=== PATIENT | female | born 1935 | race Caucasian/White ===

== ENCOUNTER 2018-04-27 19:45 | Observation (INO) | payer MEDICARE, BC ==
--- NOTE | 2018-04-27 20:39 | RAD ---
EXAM DESCRIPTION: Chest,1 View CLINICAL HISTORY: syncope COMPARISON: None. FINDINGS: Electronic cardiac device and leads are present. Cardiac silhouette is mildly enlarged. There is no focal parenchymal or pleural disease. Visualized osseous structures are within normal limits. IMPRESSION: No evidence of acute cardiopulmonary disease. Electronically signed by: Aj Zavala 04/27/2018 8:37 PM CDT
--- NOTE | 2018-04-27 20:40 | CT ---
EXAM DESCRIPTION: Head CLINICAL HISTORY: syncope COMPARISON: None Available TECHNIQUE: Contiguous axial CT images of the head were obtained. Coronal and sagittal reconstructions were created from the axial data. This exam was performed according to our departmental dose-optimization program, which includes automated exposure control, adjustment of the mA and/or kV according to patient size and/or use of iterative reconstruction technique. FINDINGS: There is no evidence of acute mass, mass effect, midline shift or hemorrhage. The ventricles and extra-axial CSF spaces are unremarkable. The brain parenchyma appears normal for the patient's age. No acute abnormalities of the bones is seen. IMPRESSION: No acute intracranial abnormality. Electronically signed by: Aj Zavala 04/27/2018 8:39 PM CDT
--- NOTE | 2018-04-27 21:10 | ED.PDOC ---
History of Present Illness - General Chief Complaint: Syncope/Near Syncope Stated Complaint: Passed Out Time Seen by Provider: 04/27/18 19:57 Source: patient Exam Limitations: no limitations - History of Present Illness Initial Comments: the patient's an 83-year-old female presenting to the emergency room after having passed out at the checkout line in [facility]. She reports that she had been doing okay getting around [facility] that she started getting dizzy and that she didn't pass out. She is not hurting anywhere. She is uncertain if she has passed out before. She does apparently have some dementia. She is not having any chest pain. She reports very mild shortness of breath. No palpitations. No dizziness currently. No urinary symptoms. No nausea or vomiting. She is moving all 4 extremities well. Timing/Duration: unsure Severity: mild Improving Factors: nothing Worsening Factors: nothing Allergies/Adverse Reactions: Allergies Tramadol Allergy (Severe, Verified 04/27/18 20:06) Hives Review of Systems - Review of Systems Constitutional: States: malaise EENTM: States: no symptoms reported Respiratory: States: short of breath - very mild Cardiology: States: no symptoms reported Gastrointestinal/Abdominal: States: no symptoms reported Genitourinary: States: no symptoms reported Musculoskeletal: States: no symptoms reported Skin: States: no symptoms reported Neurological: States: other - syncope Endocrine: States: no symptoms reported All other Systems: No Change from Baseline Physical Exam - Physical Exam General Appearance: Alert, Comfortable, No apparent distress Eye Exam: bilateral normal Ears, Nose, Throat: hearing grossly normal, normal ENT inspection, normal pharynx Neck: full range of motion, supple, normal inspection Respiratory: lungs clear, normal breath sounds, no respiratory distress, no accessory muscle use Cardiovascular/Chest: normal peripheral pulses, no edema, other - regular rate Peripheral Pulses: radial,right: 2+, radial,left: 2+, dorsalis pedis,right: 2+, dorsalis pedis,left: 2+ Gastrointestinal/Abdominal: non tender, soft Rectal Exam: deferred Back Exam: normal inspection, no CVA tenderness, no vertebral tenderness Extremity: non-tender, normal inspection, no pedal edema, normal capillary refill Neurologic: marketing communications leader II-XII nml as tested, alert, normal mood/affect, oriented x 3, other - again the patient does have some dementia Skin Exam: normal color Progress - Progress Progress: 04/27/18 21:46 the patient's an 83-year-old female with past at [facility] today. Source of the syncope is still uncertain. No significant arrhythmia has been noted on telemetry monitoring so far. Head CT and chest x-ray are within normal limits. Laboratory work shows mild hypokalemia for which she is receiving a dose of potassium. She also does have a moderately elevated TSH which may yet need to be addressed. She does have multiple home medications which can make her more prone to syncopal episodes. Additionally family is reporting that she was started on a new antidepressant this week which may also be contributing. She does need some assistance with getting out that she is still very mildly dizzy. No focal neurological deficits. She is in no distress. She is alert and oriented. The patient will be admitted for further monitoring overnight. Outpatient carotid Dopplers may yet prove warranted. - Results/Orders Results/Orders: tilt vitals are negative. No significant drop in the blood pressure. She has a paced rate. UA [URINALYSIS] Stat still pending 04/27/18 20:15 EKG STAT the patient appears to have a atrially and ventricularly paced rhythm. Given that she does have T-wave inversions in aVL. Again it is a paced rhythm. Laboratory Results - last 24 hr 04/27/18 04/27/18 04/27/18 20:04 20:04 20:04 WBC RBC Hgb Hct MCV MCH MCHC RDW Plt Count MPV Absolute Neuts (auto) Absolute Lymphs (auto) Absolute Monos (auto) Absolute Eos (auto) Absolute Basos (auto) Neutrophils % Lymphocytes % Monocytes % Eosinophils % Basophils % PT 11.4 INR 0.980 PTT (SP) 25.2 D-Dimer, Quantitative 362 H* Sodium 138 Potassium 3.3 L Chloride 104 Carbon Dioxide 26 Anion Gap 11.3 L BUN 17 Creatinine 1.04 BUN/Creatinine Ratio 16.3 Random Glucose 94 Serum Osmolality 277.0 Lactic Acid 1.1 Calcium 8.3 L Magnesium 1.8 Total Bilirubin 0.4 AST 20 ALT 11 Alkaline Phosphatase 69 Creatine Kinase 86 CK-MB (CK-2) 1.3 CK-MB (CK-2) % Not Reportable Troponin I 0.02 B-Natriuretic Peptide 158.0 H Serum Total Protein 6.4 Albumin 3.7 Globulin 2.7 Albumin/Globulin Ratio 1.4 TSH 9.92 H 04/27/18 20:05 WBC 6.8 RBC 3.80 L Hgb 11.7 L Hct 34.3 L MCV 90.3 MCH 30.7 MCHC 34.1 RDW 13.6 Plt Count 212 MPV 8.2 Absolute Neuts (auto) 4.10 Absolute Lymphs (auto) 1.60 Absolute Monos (auto) 0.90 H Absolute Eos (auto) 0.10 Absolute Basos (auto) 0.10 Neutrophils % 60.5 Lymphocytes % 23.9 Monocytes % 12.8 H Eosinophils % 1.8 Basophils % 1.0 PT INR PTT (SP) D-Dimer, Quantitative Sodium Potassium Chloride Carbon Dioxide Anion Gap BUN Creatinine BUN/Creatinine Ratio Random Glucose Serum Osmolality Lactic Acid Calcium Magnesium Total Bilirubin AST ALT Alkaline Phosphatase Creatine Kinase CK-MB (CK-2) CK-MB (CK-2) % Troponin I B-Natriuretic Peptide Serum Total Protein Albumin Globulin Albumin/Globulin Ratio TSH chest x-ray shows no acute pathology. Head CT shows no acute pathology.see reports for details. Departure - Departure Clinical Impression: Hypokalemia Syncope Qualifiers: Syncope type: unspecified Qualified Code(s): R55 - Syncope and collapse Hypothyroidism Qualifiers: Hypothyroidism type: unspecified Qualified Code(s): E03.9 - Hypothyroidism, unspecified Disposition: Admit Patient Condition: Fair Decision To Admit - Decistion To Admit Decision to Admit Reason: Medical Nature Decision to Admit Date: 04/27/18 Decision to Admit Time: 21:49
[2018-04-27] MEDS ORDERED: POTASSIUM CHLORIDE ELIXIR 20 MEQ/15 ML UD PO ONE (21:37)
--- NOTE | 2018-04-27 22:55 | HP ---
SUPERVISING PHYSICIAN: Pete Dai M.D. CHIEF COMPLAINT: Syncopal episode. HISTORY OF PRESENT ILLNESS: Ms. Colorado is an 83 year-old female patient that resides in assisted living at [facility]. She presented to the Emergency Department via EMS as she passed out st [facility]. She reported that she was having a good day and getting around at [facility] and then started getting dizzy, and sat down in a chair and apparently passed out. She denied any chest pains on admission, any shortness of breath or palpitations. She does have some dizziness periodically but was reporting no dizziness at time of admission. Laboratory studies showed she had a normal white count. Chemistries showed she was just mildly hypokalemic with a potassium of 3.3, otherwise chemistries were unremarkable. TSH was elevated at 9.92. Urinalysis showed a small amount of leukocyte esterase on dipstick, but microscopic revealed 1 to 3 RBCs with 20 to 30 WBCs, 1 to 3 epithelials with 4+ bacteria. She had a CT of the head without contrast per with radiology interpretation no acute intracranial abnormalities were noted. The patient does have a history of dementia and notes that she frequently has some fainting episodes when she is in a hot, congested environment such as [facility]. She does take multiple medications that could possibly be prone to resulting in syncopal episodes as well as just recently started a new antidepressant. No focal deficits were noted in the E. R., however given the patient's syncopal episode, advanced age, multiple co-morbidities and hypokalemic state the patient was placed in Observation status for further monitoring and evaluation. The patient was in stable condition at time of admission. PAST MEDICAL HISTORY: 1. Congestive heart failure with a systolic dysfunction with an echocardiogram showing a 20% ejection fraction on 02/26/17. 2. Hyperlipidemia. 3. Hypertension. 4. Severe mitral valve regurgitation. 5. History of left bundle branch block. 6. Urinary incontinence with multiple urinary infections currently on suppressive antibiotic therapy. 7. Osteoarthritis. 8. History of multinodular goiter. 9. Peripheral sensory neuropathy. 10. Memory loss. 11. Essential tremor. 12. Seasonal allergies. PAST SURGICAL HISTORY: 1. Hysterectomy in 1974. 2. Heel spur in 1998. 3. Bilateral cataracts in 2006. 4. Heart cath in 1996, 2002 and again in 2011. 5. Thyroid biopsy in 2007. 6. Hand fracture repair in 2012. 7. InterStim bladder implant in June 2013. 8. Defibrillator implantation on 03/2017. HOME MEDICATIONS: 1. Zetia 10 mg at bedtime. 2. Tylenol 650 mg every 6 hours p.r.n. 3. Red yeast rice 1200 mg daily. 4. Mysoline 100 mg at bedtime. 5. Pazeo 1 drop both eyes. 6. Prevagen extra strength 20 mg at bedtime. 7. Namenda 5 mg b.i.d. 8. Myrbetriq 25 mg daily. 9. Zestril 2.5 mg daily. 10. Lasix 40 mg daily. 11. Coreg 6.25 mg b.i.d. 12. Xanax 0.25 mg every 12 hours as needed. ALLERGIES: TRAMADOL. FAMILY HISTORY: at age 76 due to myocardial infarction. Mother at age 95 due to congestive heart failure complications and arthritis. She has 1 daughter that has breast cancer and Sjogren's. SOCIAL HISTORY: The patient is retired. Currently living at [facility]. She has never smoked and has never drank alcohol, and does not use illicit drugs. REVIEW OF SYSTEMS: CONSTITUTIONAL: Notes some general malaise. Denies any fever or chills. HEENT: No headaches, ear aches, sore throat or vision changes. RESPIRATORY: Does have some mild shortness of breath at times. No coughing or wheezing. CARDIOVASCULAR: No chest pains or palpitations, but as noted in history of present illness syncopal episode. GASTROINTESTINAL: No nausea, vomiting, diarrhea, constipation or abdominal pains. GENITOURINARY: Has chronic urinary tract infections but denies any current urinary symptoms. NEUROLOGIC: As noted in history of present illness, currently syncopal episode. She does note that she has some dizziness periodically, but it is not predictable and typically goes away shortly after sitting still and typically with change in position. She denies any ataxia, seizures or other neurological deficits. She does have a history of dementia with poor memory. PHYSICAL EXAMINATION: VITAL SIGNS: Temperature 97.6, pulse 60, blood pressure 102/61, respirations 16 , satting 99% on room air. Admission weight was 69.6 kg. GENERAL: On admission to the Medical/Surgical floor, the patient appeared to be comfortable in no acute distress. She was alert and pleasantly confused as to current date and locations. HEENT: Tympanic membranes are clear bilaterally. Oropharynx was pink and moist without any lesions. There were no lesions noted. NECK: Full range of motion. Supple, non-tender and no jugular venous distention. CHEST: Lungs were clear to auscultation bilaterally without any rhonchi, wheezing or rales. CARDIOVASCULAR: Regular rate and rhythm with no discernible murmurs, gallops, or rubs. ABDOMEN: Non-tender, soft with palpation with positive bowel sounds. BACK: Atraumatic with no CVA tenderness. No paravertebral tenderness. EXTREMITIES: Atraumatic. Full range of motion, moving all extremities ad dasha with no edema, cyanosis or clubbing. NEUROLOGIC: Cranial nerves II-XII are grossly intact. Facial features were symmetrical. Extraocular movements were within normal limits. There was no notable nystagmus. The patient was alert to herself and locations, but she could not remember where she used to live and could not recall the year, but she does have a history of dementia. There was no obvious focal neurological deficits. LABORATORY: CBC showed a white count of 6,800, hemoglobin 11.7, hematocrit 34.3 , platelet count 212,000. Differential showed to be without a left shift. Coagulation studies showed a normal PT and PTT, slightly elevated D-dimer at 362. Chemistry showed a mildly low potassium at 3.3, otherwise other electrolytes were normal. BUN 17, creatinine 1.04, lactic acid 1.1, calcium 8.3. Liver functions all were within normal limits. Magnesium normal at 1.0. Troponin at 0.02. BNP was only slightly elevated at 158 and TSH was elevated at 9.92. Urinalysis showed cloudy urine with small amount of leukocyte esterase , RBCs 1 to 3, epithelials were 1 to 3 and WBCs were 20 to 30 with 4+ bacteria. MICROBIOLOGY: Urine culture is pending. RADIOLOGY: She had a CT of the head without contrast and per radiology interpretation no acute intracranial abnormalities. She had a chest x-ray in the E. R., single view chest, per radiology interpretation showed no evidence of acute cardiopulmonary disease. ASSESSMENT: 1. Syncopal episode, uncertain etiology, possibly related to heat exposure and exhaustion. 2. Electrolyte imbalance with hypokalemia with the patient currently on Lasix. 3. Elevated TSH with no mention of a history of hypothyroidism and not currently on supplementation possibly contributing to some of her symptoms of heat intolerance and fatigue easily. Again, needing further workup in the outpatient setting. 4. History of hypertension with an echocardiogram in 02/2017 showing a systolic dysfunction with an ejection fraction of 20%. 5. Congestive heart failure with last echocardiogram in showing a systolic dysfunction with an ejection fraction of 20% with no evidence of exacerbation. 6. Hyperlipidemia. 7. Mitral regurgitation, severe. 8. History of urinary incontinence with frequent urinary tract infections. 9. Memory loss. 10. Essentially tremor. 11. Seasonal allergies. 12. Urinary tract infection with cultures pending with the patient having a history of frequent urinary tract infections having previously been placed on suppressive antibiotic therapy. PLAN: We are going to place the patient in Observation for close telemetry monitoring and further evaluation. Will plan to replace her potassium slowly with IV fluids, reevaluate chemistries in the morning. In regards to the elevated TSH and questionable hypothyroidism, will defer definitive treatment to Dr. Cohn and call him on Sunday for choice of treatment medication and further testing. Anticipate length of stay to be 1 to 2 days. Hopefully be able to discharge later tomorrow, but need to ensure the patient is no longer having any dizziness spells or any further syncopal episodes prior to discharge as she does live at assisted living but essentially lives by herself without any [id number] help. Will resume her home medications once they have been updated and verified as appropriate. She will be on DVT prophylaxis as appropriate. Will start her on Rocephin, currently awaiting culture results for treatment of the urinary tract infection and adjust antibiotics according to results. If she is still here Sunday, will plan to go ahead and get an evaluation with Physical Therapy on Sunday to ensure that she is safe to discharge. Until then, will continue to monitor and treat appropriately. #[id number] [facility]
[2018-04-27] MEDS ORDERED: ACETAMINOPHEN 325 MG TAB PO PRN (23:36)
--- NOTE | 2018-04-27 23:42 | PCM.CORE ---
Physician DVT/VTE - Nurse DVT Assessment & Total Each Risk Factor Represents 3 Points: Age over 75 years Each Risk Factor is 1 Point: Obesity (BMI >25) DVT Assessment Score: 4 - 3-4 High Risk Treatments: Early Ambulation *, Sequential Compression Device Pharmacological: Enoxaparin 40 mg SQ Daily
[2018-04-27] MEDS ORDERED: IV SET AND CAP CHANGE INJ INJ SCH (23:45)
[2018-04-28] MEDS: KCL 20 MEQ/NS 1,000 ML IVS PRN ×2 (00:43→14:12)
[2018-04-28] MEDS: SODIUM CHLORIDE 0.9% (FLUSH) 10 ML SYG IV PRN (00:43)
[2018-04-28] MEDS ORDERED: cefTRIAXone SODIUM 1 GM VIAL ONE ×2 (01:49→14:03)
[2018-04-28] MEDS ORDERED: SODIUM CHL 0.9% 50ML MIN-BAG+ 50 ML IVPB ONE ×2 (01:50→14:03)
[2018-04-28] MEDS: cefTRIAXone SODIUM 1 GM in SODIUM CHL 0.9% 50ML MIN-BAG+ 50 ML IVPB SCH ×2 (01:54→14:12)
[2018-04-28] MEDS: ALPRAZolam 0.25 MG TAB PO PRN ×2 (01:58→20:35)
[2018-04-28] MEDS: CARVEDILOL 3.125 MG TAB PO SCH ×2 (09:39→20:35)
[2018-04-28] MEDS: ENOXAPARIN SODIUM 40 MG/0.4 ML SYG SUBCU SCH (09:39)
[2018-04-28] MEDS: FUROSEMIDE 40 MG TAB PO SCH (09:39)
[2018-04-28] MEDS: LISINOPRIL 5 MG TAB PO SCH (09:40)
[2018-04-28] MEDS: MEMANTINE 10 MG TAB PO SCH ×2 (09:44→20:47)
[2018-04-28] MEDS: OLOPATADINE HCL BOTH_EYES SCH (11:18)
[2018-04-28] MEDS: NON-FORMULARY MEDICATION 1 EA MIS (Mirabegron [Myrbetriq] 25 MG) PO SCH (11:19)
[2018-04-28] MEDS ORDERED: EZETIMIBE 10 MG TAB PO SCH (21:00)
[2018-04-28] MEDS ORDERED: APOAEQUORIN PO SCH (21:00)
[2018-04-28] MEDS ORDERED: PRIMIDONE 50 MG TAB PO SCH (21:00)
[2018-04-29] MEDS ORDERED: SODIUM CHL 0.9% 50ML MIN-BAG+ 50 ML IVPB ONE (00:58)
[2018-04-29] MEDS ORDERED: cefTRIAXone SODIUM 1 GM VIAL ONE (00:58)
[2018-04-29] MEDS: SODIUM CHLORIDE 0.9% (FLUSH) 10 ML SYG IV PRN (01:56)
[2018-04-29] MEDS: cefTRIAXone SODIUM 1 GM in SODIUM CHL 0.9% 50ML MIN-BAG+ 50 ML IVPB SCH (01:56)
--- NOTE | 2018-04-29 08:24 | PN ---
SUPERVISING PHYSICIAN: Pete Dai MD DATE: 04/28/18 SUBJECTIVE: The patient this morning is much more oriented and has a better recall of events of previous days. She actually got to a chair but still continues to have dizziness upon standing although blood pressure does not show any significant changes in regard to tilt vital signs. OBJECTIVE: VITAL SIGNS: Afebrile. Temperature 97.6. Pulse 60. Blood pressure 102/60. Respirations 16. Saturation 99% on room air. I&Os show negative balance of 1400 with 450 in, 1850 out, weight 69.6 kg. CHEST: Lungs clear to auscultation. HEART: Regular rate and rhythm. ABDOMEN: Soft, nontender. Positive bowel sounds. EXTREMITIES: No cyanosis, clubbing or edema. NEUROLOGIC: Alert and oriented times three. Cranial nerves remain grossly intact. Extraocular movements are intact with no notable nystagmus. There is no obvious ataxia. She is ambulatory, but does have some dizziness upon standing. LABORATORY: Chemistries now show normal electrolytes with potassium 4.0, BUN 14 , creatinine 0.87, calcium 8.5. MICROBIOLOGY: Urine culture is pending. RADIOLOGY: No additional radiographic studies done this morning. ASSESSMENT: 1. Syncopal episode, uncertain etiology, possibly related to heat exposure and exhaustion. 2. Electrolyte imbalance with hypokalemia with the patient currently on Lasix , showing improvement with IV fluids. 3. Elevated TSH with no mention of a history of hypothyroidism and not currently on supplementation possibly contributing to some of her symptoms of heat intolerance and fatigue easily. Again, needing further workup in the outpatient setting. 4. History of hypertension with an echocardiogram in 02/2017 showing a systolic dysfunction with an ejection fraction of 20%. 5. Congestive heart failure with last echocardiogram in showing a systolic dysfunction with an ejection fraction of 20% with no evidence of exacerbation. Certainly with such a decreased ejection fraction, the patient would be prone to syncopal episodes with minimal changes in blood pressure. 6. Hyperlipidemia. 7. Mitral regurgitation, severe. 8. History of urinary incontinence with frequent urinary tract infections. 9. Memory loss. 10. Essentially tremor. 11. Seasonal allergies. 12. Urinary tract infection with cultures pending with the patient having a history of frequent urinary tract infections having previously been placed on suppressive antibiotic therapy. The patient is on Rocephin. PLAN: I was hoping to be able to discharge the patient today, but this morning when we got her up, she was having a significant amount of dizziness. There is no pattern to this dizziness and the patient is not actually showing any syncope , but continues to be unstable on her feet. An additional 24 hours of close observation with continued fluid maintenance and physical therapy evaluation in the morning would be warranted prior to discharge. WE will need to talk to Dr. Cohn in regards to starting treatment for the elevated TSH. We will continue to monitor the patient closely and anticipate discharge tomorrow after physical therapy evaluation. Until then, we will continue to monitor the patient closely and treat appropriately. #[id number] [facility]
[2018-04-29] MEDS: CARVEDILOL 3.125 MG TAB PO SCH (08:30)
[2018-04-29] MEDS: FUROSEMIDE 40 MG TAB PO SCH (08:30)
[2018-04-29] MEDS: LISINOPRIL 5 MG TAB PO SCH (08:30)
[2018-04-29] MEDS: MEMANTINE 10 MG TAB PO SCH (08:30)
[2018-04-29] MEDS: ENOXAPARIN SODIUM 40 MG/0.4 ML SYG SUBCU SCH (08:30)
[2018-04-29] MEDS: NON-FORMULARY MEDICATION 1 EA MIS (Mirabegron [Myrbetriq] 25 MG) PO SCH (08:31)
[2018-04-29] MEDS: OLOPATADINE HCL BOTH_EYES SCH (08:31)
[2018-04-29] MEDS ORDERED: SODIUM CHLORIDE 0.9% (FLUSH) 10 ML SYG IV SCH (09:00)
[2018-04-29 10:42] VITALS: BP 116/61; TEMP 97.2; O2SAT 97
--- NOTE | 2018-04-29 14:17 | DS ---
SUPERVISING PHYSICIAN: Hussain Zamora MD ADMISSION DIAGNOSIS: 1. Syncope, likely relate to heat exposure and heat exhaustion. 2. Electrolyte imbalance, hypokalemia. 3. Elevated TSH. 4. Hypertension. 5. Cardiomyopathy with ejection fraction 20%. 6. Severe mitral regurgitation. 7. Dementia. 8. Urinary tract infection. DISCHARGE DIAGNOSIS: 1. Syncope, likely relate to heat exposure and heat exhaustion. 2. Electrolyte imbalance, hypokalemia. 3. Elevated TSH. 4. Hypertension. 5. Cardiomyopathy with ejection fraction 20%. 6. Severe mitral regurgitation. 7. Dementia. 8. Urinary tract infection. HOSPITAL COURSE: This is an 83-year-old female who presented to the Emergency Room via EMS because she had a syncopal episode at [facility]. She states she was in her usual state of health, but that in [facility], she started to get dizzy. She sat down in a chair and apparently had a syncopal episode. She denies any other symptoms of distress, pain, shortness of breath or palpitations. She states she periodically has some dizziness, but this time she did lose consciousness. When she was seen in the Emergency Room, she had labs done which showed a mild hypokalemia at 3.3, normal white count. TSH was elevated at 9.92. She also had a urinary tract infection. CT scan of the brain showed no acute abnormalities. She does have a history of dementia as well. When she was admitted, she was placed on antibiotics for urinary tract infection. However, cultures have not been resulted as of yet. She had no further syncopal episodes. She stated she was weak, but physical therapy evaluated her the day of discharge and she ambulated in the [place] without any problem and was stable to go back to her assisted living facility. ACTIVITY: As tolerated. FOLLOWUP: Followup appointment with Dr. Cohn in one to two weeks. DIET: As per usual diet. DISCHARGE MEDICATIONS: 1. Ceftin 500 mg b.i.d. for 7 days. 2. Levothyroxine 50 mcg daily. She will have followup appointment with Dr. Cohn and he can adjust this medication accordingly. #[id number] [facility]
== END 2018-04-29 12:58 ==
LOC: ER 19:45 → MS 22:53
PROVIDERS: ADMIT Nurse Practitioner Family; ATTEND Nurse Practitioner
DX: R55 Syncope and collapse (principal); E87.6 Hypokalemia; E87.8 Other disorders of electrolyte and fluid balance, not elsewhere classified; R94.6 Abnormal results of thyroid function studies; I11.0 Hypertensive heart disease with heart failure; I42.9 Cardiomyopathy, unspecified; I34.0 Nonrheumatic mitral (valve) insufficiency; F03.90 Unspecified dementia, unspecified severity, without behavioral disturbance, psychotic disturbance, mood disturbance, and anxiety; N39.0 Urinary tract infection, site not specified; I50.20 Unspecified systolic (congestive) heart failure; E78.5 Hyperlipidemia, unspecified; G62.9 Polyneuropathy, unspecified; Z79.899 Other long term (current) drug therapy; Z88.6 Allergy status to analgesic agent
CPT/HCPCS: 96365; 96366; 96367; 96372 ×2; 96376 ×2; J0696 ×3; J1650 ×2; J3480 ×2; J7050 ×3; 85379; 80048; 82553; 80053; 87086; 36415 ×2; 81001; 85025; 82550; 83735; 85730; 85610; 84443; 84484; 83880; 83605; 71045; 70450; 94760 ×4; 97116; G8978; G8979; G8980; 97162; 99285; 93005

== ENCOUNTER → 2018-05-02 | Outpatient (CLI) | payer MEDICARE, BC | LOC: GMAL 17:00 | PROVIDERS: ATTEND Family Medicine | DX: E05.90 Thyrotoxicosis, unspecified without thyrotoxic crisis or storm (principal) ==

== ENCOUNTER → 2018-05-15 | Outpatient (CLI) | payer MEDICARE, BC | LOC: YCHH 10:06 | PROVIDERS: ATTEND Family Medicine | DX: I50.9 Heart failure, unspecified (principal) ==

== ENCOUNTER → 2018-05-28 | Outpatient (CLI) | payer MEDICARE, BC | LOC: YCHH 10:22 | PROVIDERS: ATTEND Family Medicine | DX: I50.9 Heart failure, unspecified (principal) ==

== ENCOUNTER → 2018-06-04 | Outpatient (CLI) | payer MEDICARE, BC | LOC: GMAL 10:44 | PROVIDERS: ATTEND Family Medicine | DX: D51.3 Other dietary vitamin B12 deficiency anemia (principal); E05.90 Thyrotoxicosis, unspecified without thyrotoxic crisis or storm; E55.9 Vitamin D deficiency, unspecified ==

== ENCOUNTER 2018-10-09 16:34 | Observation (INO) | payer MEDICARE ==
--- NOTE | 2018-10-09 16:38 | HP ---
SUPERVISING PHYSICIAN: Pete Dai MD CHIEF COMPLAINT: Dehydration, positive tilt vital signs. HISTORY OF PRESENT ILLNESS: Ms. Colorado is a 83-year-old, female patient that resides at [facility]. On 09/25/18, she was seen at the clinic at the walk-in for urinary tract infection and started on Bactrim. She completed the course of Bactrim. At the time of the urinary tract treatment, collection was only enough to do a urinalysis and was unable to complete a culture. The patient is on Lasix and MiraLAX. Today in the clinic, she was found to have significant tilt vital signs with her systolic dropping about 38 points. She was noted to be much weaker by family members. Dr. Cohn, primary care physician, requested the patient be placed in observation overnight for IV fluids as it was felt the patient was showing significant dehydration from both treatment of the urinary tract infection and Lasix and MiraLAX. The patient was placed in observation in stable condition for further evaluation and initiation of fluid management. PAST MEDICAL HISTORY: 1. Congestive heart failure with last echocardiogram in February of 2017 showing systolic dysfunction with ejection fraction of 20%. 2. Hyperlipidemia. 3. Hypertension. 4. Severe mitral valve regurgitation. 5. History of left bundle branch block. 6. Urinary incontinence with frequent urinary infections with the patient being placed on suppressive antibiotic therapy in spring. 7. Osteoarthritis. 8. History of multinodular goiter. 9. Peripheral sensory neuropathy. 10. Memory loss. 11. Essential tremor. 12. Seasonal allergies. PAST SURGICAL HISTORY: 1. Hysterectomy. 2. Heel spur removal. 3. Bilateral cataracts. 4. Heart cath in 1996, 2002 and 2011. 5. Thyroid biopsy in 2007. 6. Hand fracture repair in 2012. 7. InterStim bladder implant in 2012. 8. Pacer/defibrillator implantation in 2016. HOME MEDICATIONS: 1. Potassium 10 mEq daily. 2. Lexapro 5 mg daily. 3. Tylenol 650 mg as needed q.6h. 4. Xanax 0.25 mg q.12h. 5. Coreg 6.25 mg b.i.d. 6. Prevagen Extra Strength 20 mg at bedtime. 7. Zetia 10 mg at bedtime. 8. Levothyroxine 50 mcg daily. 9. Lasix 40 mg daily. 10. Lisinopril 2.5 mg daily. 11. Namenda 10 mg daily. 12. Myrbetriq 25 mg daily. 13. Pazeo 1 drop both eyes daily. 14. Mysoline 50 mg at bedtime. 15. Red yeast rice 1200 mg daily. ALLERGIES: TRAMADOL. FAMILY HISTORY: Father at age 86 from myocardial infarction. Mother at age 95 due to congestive heart failure and she had arthritis. She has one son who has a history of melanoma. She has one daughter that has breast cancer and Sjgren's. No listed siblings. SOCIAL HISTORY: The patient is retired. She currently lives in assisted living at [facility], [facility]. She has never smoked or drank alcohol. She does not use illicit drugs. REVIEW OF SYSTEMS: CONSTITUTIONAL: She notes some general malaise, but denies any fevers or chills. HEENT: Denies headaches, earaches, sore throats, nasal congestion or vision changes. RESPIRATORY: Denies shortness of breath, coughing or wheezing. CARDIOVASCULAR: Denies chest pain, palpitations or syncopal episodes. GASTROINTESTINAL: Denies nausea or vomiting, diarrhea, constipation or abdominal pains. GENITOURINARY: She has chronic urinary tract infections, but denies any current dysuria, hematuria, polyuria. NEUROLOGIC: Denies syncopal episodes, ataxia, seizure activity or other neurologic deficits. She does have a history of dementia with poor memory. PHYSICAL EXAMINATION: VITAL SIGNS: Temperature 97.7. Pulse 60. Blood pressure 129/82. Respiratory rate 16. Saturation 99% on room air. Admission weight 71.6 kg. GENERAL: On admission to the Medical/Surgical Floor, the patient appears to be in no acute distress. She is very pleasant, somewhat confused, but knows where she is at and the current date. HEENT: Tympanic membranes clear bilaterally. Oropharynx is pink. Mucous membranes significantly dry with dry, cracked tongues. No lesions noted. NECK: Supple, nontender with full range of motion. No jugular venous distention noted. RESPIRATORY: Lungs clear to auscultation bilaterally without any rhonchi, wheezes, or rales. CARDIOVASCULAR: Regular rate and rhythm without any discernible murmurs, gallops, or rubs. ABDOMEN: Soft, nontender. Positive bowel sounds. No rebound tenderness. EXTREMITIES: She moves all extremities ad dasha. There is no cyanosis, clubbing or edema. NEUROLOGIC: Cranial nerves II-XII are grossly intact. Facial features are symmetrical. Extraocular movements are within normal limits. There is no nystagmus noted. The patient is alert to herself and location, but has no obvious neurologic deficits. She is very pleasant. LABORATORY: On admission from the clinic, CMP showed glucose 100, BUN 20, creatinine 1.1, sodium 137, potassium 3.8, chloride 99, CO2 27, calcium 9.3, total protein high at 8.2, albumin 4.6. Liver functions all within normal limits except for slightly elevated AST of 53, total bilirubin 0.9. Additional labs performed in the clinic showed urinalysis with 1+ ketones, 2+ bilirubin. Microscopic showed 1+ leukocytosis with 5 to 10 WBCs, no red cells, a few epithelials, 4+ bacteria, a few hyaline casts. Chest x-ray was pending at time of admission from the clinic. ASSESSMENT: 1. Moderate dehydration secondary to Lasix and MiraLAX as noted with a positive tilt exam exacted by previous treatment of urinary tract infection with Bactrim. 2. History of recurrent urinary tract infections having been recently treated with a full and complete course of Bactrim with no cultures completed at time of initial exam. 3. History of congestive heart failure with a noted systolic dysfunction on last echocardiogram showing ejection fraction of 20% in February of 2017. 4. History of hyperlipidemia. 5. History of hypertension. 6. Severe mitral valve regurgitation with a left bundle branch block. 7. History of multinodular goiter. 8. Peripheral sensory neuropathy. 9. Memory loss. 10. Essential tremor. 11. Seasonal allergies. 12. Osteoarthritis. PLAN: The patient will be placed in observation tonight and started on IV fluids. I will give her 2 liters of LR on initial bolus at 250 an hour and the next will be at 125 per hour, then we will go to maintenance fluids with half normal saline with 20 of potassium run at 80 and reevaluate BMP in the morning as well as tilt vital signs. We will anticipate length of stay to be 1 or 2 days, possibly discharging tomorrow. Once discharged as an outpatient, Dr. Cohn requested that her Lasix and MiraLAX be held for at least a week after discharge. We will certainly hold both while in the hospital. We will start her on DVT prophylaxis per protocol. We will resume home medications except for the Lasix, lisinopril and MiraLAX until we can further evaluate. Until she can transition to outpatient management, we will continue to monitor and treat as needed. #[id number] [facility]
[2018-10-09] MEDS ORDERED: LACTATED RINGERS 1,000 ML IVS PRN (17:01)
[2018-10-09] MEDS ORDERED: SODIUM CHLORIDE 0.9% (FLUSH) 10 ML SYG IV PRN (17:01)
[2018-10-09] MEDS ORDERED: IV SET AND CAP CHANGE INJ INJ SCH (17:30)
[2018-10-09] MEDS ORDERED: LACTATED RINGERS 1,000 ML IVS ONE (21:25)
[2018-10-09] MEDS ORDERED: KCL 20MEQ/0.45% NS 1,000 ML IVS PRN (22:36)
[2018-10-09] MEDS: ALPRAZolam 0.25 MG TAB PO SCH (23:23)
[2018-10-10] MEDS ORDERED: NON-FORMULARY MEDICATION 1 EA MIS (Potassium Chloride [Micro-K] 10 MEQ) PO SCH (07:30)
[2018-10-10] MEDS ORDERED: ENOXAPARIN SODIUM 40 MG/0.4 ML SYG SUBCU SCH (09:00)
[2018-10-10] MEDS ORDERED: RED YEAST RICE EXTRACT 1200 MG PO SCH (09:00)
[2018-10-10] MEDS ORDERED: CARVEDILOL 3.125 MG TAB PO SCH (09:00)
[2018-10-10] MEDS ORDERED: ESCITALOPRAM 10 MG TAB PO SCH (09:00)
[2018-10-10] MEDS ORDERED: OLOPATADINE HCL BOTH_EYES SCH (09:00)
[2018-10-10] MEDS ORDERED: NON-FORMULARY MEDICATION 1 EA MIS (Carvedilol [Coreg] 6.25 MG) PO SCH (09:00)
[2018-10-10] MEDS ORDERED: LEVOTHYROXINE SODIUM 50 MCG PO SCH (09:00)
[2018-10-10] MEDS ORDERED: NON-FORMULARY MEDICATION 1 EA MIS (Mirabegron [Myrbetriq] 25 MG) PO SCH (09:00)
[2018-10-10] MEDS ORDERED: MEMANTINE HCL 10 MG PO SCH (09:00)
[2018-10-10] MEDS ORDERED: MEMANTINE 10 MG TAB PO SCH (09:00)
[2018-10-10] MEDS ORDERED: ESCITALOPRAM OXALATE 5 MG PO SCH (09:00)
[2018-10-10] MEDS ORDERED: LEVOTHYROXINE SODIUM 0.025 MG TAB PO ONE (09:30)
[2018-10-10] MEDS ORDERED: POTASSIUM CHLORIDE 10 MEQ TAB PO SCH (09:30)
[2018-10-10] MEDS ORDERED: LEVOTHYROXINE SODIUM 0.025 MG TAB ONE (11:41)
[2018-10-10] MEDS: ALPRAZolam 0.25 MG TAB PO SCH (11:44)
[2018-10-10 12:53] VITALS: TEMP 98.1; O2SAT 96
[2018-10-10 14:38] VITALS: BP 145/73
[2018-10-10] MEDS ORDERED: PRIMIDONE 50 MG TAB PO SCH (21:00)
[2018-10-10] MEDS ORDERED: APOAEQUORIN PO SCH (21:00)
[2018-10-10] MEDS ORDERED: EZETIMIBE 10 MG TAB PO SCH (21:00)
[2018-10-11] MEDS ORDERED: LEVOTHYROXINE SODIUM 0.025 MG TAB PO SCH (06:30)
== END 2018-10-10 16:00 ==
LOC: MS 16:34
PROVIDERS: ADMIT Nurse Practitioner Family; ATTEND Nurse Practitioner Family
DX: E86.0 Dehydration (principal); I11.0 Hypertensive heart disease with heart failure; I50.22 Chronic systolic (congestive) heart failure; E78.5 Hyperlipidemia, unspecified; Z87.440 Personal history of urinary (tract) infections; I34.0 Nonrheumatic mitral (valve) insufficiency; I44.7 Left bundle-branch block, unspecified; E04.2 Nontoxic multinodular goiter; G60.8 Other hereditary and idiopathic neuropathies; R41.3 Other amnesia; G25.0 Essential tremor; J30.2 Other seasonal allergic rhinitis; M19.90 Unspecified osteoarthritis, unspecified site; Z79.899 Other long term (current) drug therapy; Z88.6 Allergy status to analgesic agent; Z95.0 Presence of cardiac pacemaker
CPT/HCPCS: 96360; 96361 ×2; 96372; J1650; J3480; J7120 ×2; 80048; 36415; 85025; 94760 ×3; G0378

== ENCOUNTER → 2019-01-09 | Outpatient (CLI) | payer MEDICARE | LOC: GMAL 14:26 | PROVIDERS: ATTEND Family Medicine | DX: D51.3 Other dietary vitamin B12 deficiency anemia (principal); I50.9 Heart failure, unspecified; N39.0 Urinary tract infection, site not specified ==

== ENCOUNTER 2019-02-17 19:43 | Emergency (ER) | payer MEDICARE ==
--- NOTE | 2019-02-17 20:29 | ED.PDOC ---
History of Present Illness - General Chief Complaint: Neuro Symptoms/Deficits Stated Complaint: lethargy Time Seen by Provider: 02/17/19 19:54 Source: family Exam Limitations: clinical condition - DEMENTIA - History of Present Illness Initial Comments: PT HAS HAD WAXING AND WANING MENTAL STATUS FOR 3-5 DAYS SON IS NOT SURE. ALSO STATES HAS BECOME INCREASINGLY LESS STABLE. THE ASSISTED LIVING FACILITY WAS CONCERNED THAT THE PATIENT'S L SIDE MAY BE WEAKER THAN THE RIGHT. SHE ALSO HAS BEEN LEANING MORE IN HER CHAIR. SOME ROS IS OBTAINABLE BUT COMPLETE ROS LIMITED SECONDARY TO PT'S DEMENTIA Severity: moderate Allergies/Adverse Reactions: Allergies Tramadol Allergy (Severe, Verified 04/27/18 20:06) Hives Aspirin Allergy (Verified 02/17/19 19:58) Home Medications: Ambulatory Orders ALPRAZolam [Xanax] 0.25 mg PO Q12H 04/28/18 Acetaminophen [Tylenol] 650 mg PO Q6H PRN 04/28/18 Apoaequorin [Prevagen Extra Strength] 20 mg PO BEDTIME 04/28/18 Carvedilol [Coreg] 6.25 mg PO BID 04/28/18 Ezetimibe [Zetia] 10 mg PO BEDTIME 04/28/18 Lisinopril [Zestril] 2.5 mg PO DAILY 04/28/18 Memantine HCl [Namenda] 10 mg PO BID 04/28/18 Mirabegron [Myrbetriq] 50 mg PO DAILY 04/28/18 Olopatadine HCl [Pazeo] 1 drop BOTH_EYES DAILY 04/28/18 Primidone [Mysoline] 50 mg PO BEDTIME 04/28/18 Red Yeast Rice Extract [Red Yeast Rice] 1,200 mg PO DAILY 04/28/18 Levothyroxine Sodium [Levo-T] 50 mcg PO QAM 30 Days #30 tab 04/29/18 Escitalopram Oxalate [Lexapro] 10 mg PO DAILY 10/09/18 Furosemide [Lasix] 40 mg PO DAILY #0 10/10/18 Polyethylene Glycol 3350 [Miralax] 17 gm PO .TWICE WEEKLY 30 Days #30 pckt 10/10/18 Potassium Chloride [Micro-K] 10 meq PO DAILY@0730 #0 10/10/18 Acetaminophen [Tylenol 8 Hour Arthritis] 650 mg PO BID 02/17/19 Ciprofloxacin [Cipro] 500 mg PO BID #14 tab 02/17/19 Guaifenesin [Robitussin Mucus+Chest Co] 100 mg PO Q4HR PRN 02/17/19 Loratadine [Allergy] 10 mg PO DAILY PRN 02/17/19 Review of Systems - Review of Systems Constitutional: States: see HPI EENTM: States: see HPI Respiratory: States: see HPI Cardiology: States: see HPI Gastrointestinal/Abdominal: States: see HPI Genitourinary: States: other - INCONTINENCE Musculoskeletal: States: see HPI Skin: States: other - INCREASED SWELLING LE'S Neurological: States: other - MORE CONFUSED THAN USUAL. Endocrine: States: see HPI Hematologic/Lymphatic: States: see HPI Past Medical History (General) - Patient Medical History Hx Seizures: No Hx Stroke: No Hx Dementia: Yes Hx Asthma: No Hx of COPD: No Hx Cardiac Disorders: Yes Hx Congestive Heart Failure: Yes Hx Pacemaker: Yes Hx Hypertension: Yes Hx Thyroid Disease: Yes Hx Diabetes: No Hx Gastroesophageal Reflux: No Hx Renal Disease: No Hx Cancer: No Hx of HIV: No Hx Hepatitis C: No Hx MRSA: No - Vaccination History Hx Tetanus, Diphtheria Vaccination: No Hx Influenza Vaccination: Yes Hx Pneumococcal Vaccination: Yes Immunizations Up to Date: Yes - Social History Hx Tobacco Use: No Hx Chewing Tobacco Use: No Hx Alcohol Use: No Hx Substance Use: No Hx Substance Use Treatment: No Hx Depression: No Hx Physical Abuse: No Hx Emotional Abuse: No Hx Suspected Abuse: No - Activities of Daily Living Group Home/Assisted Living (if applicable):: [place] - Female History Patient is a Female of Child Bearing Age (10 -59 yrs old): No Family Medical History - Family History Mother Family History: Unknown Living Status: Father Family History: Unknown Living Status: Physical Exam - Physical Exam General Appearance: Alert, Frail, No apparent distress Eye Exam: bilateral normal Ears, Nose, Throat: hearing grossly normal, normal ENT inspection Neck: full range of motion, supple, normal inspection Respiratory: lungs clear, normal breath sounds Cardiovascular/Chest: regular rate, rhythm, no murmur Gastrointestinal/Abdominal: non tender, soft, no organomegaly Back Exam: normal inspection, no vertebral tenderness Extremity: normal range of motion, non-tender, normal inspection Neurologic: no motor/sensory deficits, alert, normal mood/affect, other - ORIENTED TO PERSON AND PLACE ONLY Skin Exam: normal color, warm/dry, other - TR EDEMA FEET VEE Lymphatic: no adenopathy Progress - Progress Progress: 02/17/19 21:38 STABLE, VSS 02/17/19 21:39 WILL TREAT FOR SUSPECTED UTI PENDING CULTURES. - EKG/XRAY/CT XRAY: chest - NORI, POST SURGICAL CHANGES. Departure - Departure Clinical Impression: Alteration consciousness Incontinence Qualifiers: Incontinence type: urinary Urinary Incontinence type: unspecified incontinence Qualified Code(s): R32 - Unspecified urinary incontinence Dementia Qualifiers: Dementia type: unspecified type Dementia behavioral disturbance: without behavioral disturbance Qualified Code(s): F03.90 - Unspecified dementia without behavioral disturbance Time of Disposition: 21:42 Disposition: Discharge to Home or Self Care Condition: Fair Departure Forms: ED Discharge - Pt. Copy, Patient Portal Self Enrollment Instructions: Urinary Tract Infections in Adults Prescriptions: Ciprofloxacin [Cipro] 500 mg PO BID #14 tab Home Medications: Ambulatory Orders ALPRAZolam [Xanax] 0.25 mg PO Q12H 04/28/18 Acetaminophen [Tylenol] 650 mg PO Q6H PRN 04/28/18 Apoaequorin [Prevagen Extra Strength] 20 mg PO BEDTIME 04/28/18 Carvedilol [Coreg] 6.25 mg PO BID 04/28/18 Ezetimibe [Zetia] 10 mg PO BEDTIME 04/28/18 Lisinopril [Zestril] 2.5 mg PO DAILY 04/28/18 Memantine HCl [Namenda] 10 mg PO BID 04/28/18 Mirabegron [Myrbetriq] 50 mg PO DAILY 04/28/18 Olopatadine HCl [Pazeo] 1 drop BOTH_EYES DAILY 04/28/18 Primidone [Mysoline] 50 mg PO BEDTIME 04/28/18 Red Yeast Rice Extract [Red Yeast Rice] 1,200 mg PO DAILY 04/28/18 Levothyroxine Sodium [Levo-T] 50 mcg PO QAM 30 Days #30 tab 04/29/18 Escitalopram Oxalate [Lexapro] 10 mg PO DAILY 10/09/18 Furosemide [Lasix] 40 mg PO DAILY #0 10/10/18 Polyethylene Glycol 3350 [Miralax] 17 gm PO .TWICE WEEKLY 30 Days #30 pckt 10/10/18 Potassium Chloride [Micro-K] 10 meq PO DAILY@0730 #0 10/10/18 Acetaminophen [Tylenol 8 Hour Arthritis] 650 mg PO BID 02/17/19 Ciprofloxacin [Cipro] 500 mg PO BID #14 tab 02/17/19 Guaifenesin [Robitussin Mucus+Chest Co] 100 mg PO Q4HR PRN 02/17/19 Loratadine [Allergy] 10 mg PO DAILY PRN 02/17/19
--- NOTE | 2019-02-17 21:07 | RAD ---
EXAM DESCRIPTION: Chest,1 View CLINICAL HISTORY: 84 years Female, AMS COMPARISON: Chest x-ray April 27, 2018 FINDINGS: Cardiac pacer is noted. No consolidation. No pneumothorax. No significant pleural effusion. Cardiac silhouette appears borderline enlarged. Mild aortic atherosclerosis and tortuosity demonstrated. Degenerative changes of the spine noted with levocurvature. IMPRESSION: No acute findings. Electronically signed by: Seth Paredes MD 02/17/2019 9:04 PM CDT
--- NOTE | 2019-02-17 21:08 | CT ---
EXAM DESCRIPTION: Head. CT head without contrast. CLINICAL HISTORY: AMS COMPARISON: 04/27/2018 TECHNIQUE: Multiple axial images of the head without contrast. Multiplanar reformatted images. This exam was performed according to our departmental dose-optimization program, which includes automated exposure control, adjustment of the mA and/or kV according to patient size and/or use of iterative reconstruction technique. FINDINGS: There is no CT evidence of intracranial hemorrhage, mass effect, or large territory infarction. Moderate generalized volume loss. Moderate patchy supratentorial white matter hypodensities. There are no abnormal extra-axial fluid collections. Calcific plaque in the visualized arteries. There is no acute calvarial defect. The visualized paranasal sinuses and the mastoids are clear. IMPRESSION: 1. No CT evidence of an acute intracranial abnormality. 2. Advanced senescent changes. Electronically signed by: Oscar Ryan MD 02/17/2019 9:05 PM CDT
[2019-02-17] MEDS ORDERED: CIPROFLOXACIN 500 MG TAB PO ONE (21:48)
[2019-02-17 21:59] VITALS: BP 137/71; TEMP 99; O2SAT 96
== END 2019-02-17 22:51 | disposition home or self-care (01) ==
LOC: ER 19:43
DX: R41.82 Altered mental status, unspecified (principal); R32 Unspecified urinary incontinence; F03.90 Unspecified dementia, unspecified severity, without behavioral disturbance, psychotic disturbance, mood disturbance, and anxiety; I50.9 Heart failure, unspecified; I11.0 Hypertensive heart disease with heart failure; E07.9 Disorder of thyroid, unspecified; Z95.0 Presence of cardiac pacemaker; Z79.899 Other long term (current) drug therapy; Z88.5 Allergy status to narcotic agent; Z88.6 Allergy status to analgesic agent

== ENCOUNTER 2019-03-15 14:48 | Emergency (ER) | payer MEDICARE ==
[2019-03-15 15:02] VITALS: TEMP 97.2; O2SAT 98
--- NOTE | 2019-03-15 16:22 | RAD ---
EXAM DESCRIPTION: Thoracic Spine Lateral Only CLINICAL HISTORY: 84 years ,Female fall COMPARISON: None. TECHNIQUE: Single view FINDINGS: Single lateral view was provided. There is multilevel degenerative change in the thoracic spine. The upper thoracic spine is not well visualized. Heart appears enlarged. Pacemaker in place. Chronic appearing wedging in midthoracic vertebral bodies. IMPRESSION: Multilevel degenerative change with chronic wedging in midthoracic vertebral bodies The upper thoracic spine is not well seen Cardiac enlargement Electronically signed by: Angela Loredo MD 03/15/2019 4:19 PM CDT
--- NOTE | 2019-03-15 16:24 | CT ---
PROCEDURE: Head CLINICAL HISTORY: 84 years Female head injury COMPARISON: 02/17/2019. TECHNIQUE: Contiguous axial CT images obtained through the brain without IV contrast. This exam was performed according to our department optimization program which includes automated exposure control, adjustment of the mA and/or kv according to patient size and/or use of iterative reconstruction technique. FINDINGS: The ventricles and sulci are prominent consistent with atrophic changes. Microvascular ischemic changes. No midline shift or mass effect. No mass lesions. No acute hemorrhage. Atherosclerotic calcifications. No fluid or significant mucosal thickening in the visualized paranasal sinuses. No depressed calvarial fractures. IMPRESSION: No acute intracranial abnormality is identified. Generalized atrophy with microvascular ischemic changes. Electronically signed by: Angela Loredo MD 03/15/2019 4:21 PM CDT
--- NOTE | 2019-03-15 16:25 | RAD ---
EXAM DESCRIPTION: Ankle,Left 3 Views CLINICAL HISTORY: 84 years Female ,fall COMPARISON: None. TECHNIQUE: Left ankle, 3 view FINDINGS: No acute fractures or dislocations are identified. No osseous destructive lesions. Bony demineralization. Soft tissue swelling around the ankle particularly laterally. Small joint effusion chronic fragmentation along the distal fibula. IMPRESSION: No acute fracture is identified. Soft tissue swelling around the ankle with small joint effusion Electronically signed by: Angela Loredo MD 03/15/2019 4:22 PM CDT
--- NOTE | 2019-03-15 16:27 | RAD ---
EXAM DESCRIPTION: Lumbar Spine 3 Views CLINICAL HISTORY: 84 years ,Female fall COMPARISON: None. TECHNIQUE: Three views FINDINGS: Bony demineralization. Stimulator over the left pelvis. Marked rightward convexity lumbar curvature. Calcific densities over the left abdomen which may reflect renal stones. Narrowing of the lumbar disc interspaces particularly at L3-4 L4-5 and L5-S1 with facet arthropathy at multiple levels. No acute fracture is noted. Lordosis is within normal limits. IMPRESSION: Degenerative change and scoliosis Possible renal calculi on the left with two calcific densities the largest measuring 1 cm No acute fracture noted Electronically signed by: Angela Loredo MD 03/15/2019 4:24 PM CDT
--- NOTE | 2019-03-15 16:40 | CT ---
PROCEDURE: Cervical Spine CLINICAL HISTORY: 84 years Female head injury COMPARISON: None. TECHNIQUE: Contiguous axial images obtained through the cervical spine without IV contrast. Coronal and sagittal reformatted images obtained. This exam was performed according to our department optimization program which includes automated exposure control, adjustment of the mA and/or kv according to patient size and/or use of iterative reconstruction technique. FINDINGS: There is anterolisthesis of C2 on C3 which is likely degenerative. Mild anterolisthesis of C3 on C4. Narrowing of the disc interspaces throughout the spine with subchondral sclerosis and marginal osteophytosis. Facet arthropathy is present at multiple levels. Odontoid appears intact. Prominent pannus tissue posterior to the dens. Calcification in the carotid bulbs. There is a spur in the left neural foramen at C2-3 with mild narrowing. C3-4: Bilateral neural foraminal narrowing. C4-5: Bilateral neural foraminal stenosis. C5-6: Mild central canal stenosis and bilateral neural foraminal stenosis right greater than left. C6-7: Mild narrowing of the neural foramina. IMPRESSION: No acute cervical spinal fracture is identified. Multilevel degenerative change Electronically signed by: Angela Loredo MD 03/15/2019 4:37 PM CDT
[2019-03-15] MEDS ORDERED: ACETAMINOPHEN 325 MG TAB PO ONE (17:17)
[2019-03-15] MEDS ORDERED: IBUPROFEN 200 MG TAB PO ONE (17:17)
--- NOTE | 2019-03-15 17:17 | ED.PDOC ---
History of Present Illness - General Chief Complaint: Trauma Stated Complaint: s/p fall Time Seen by Provider: 03/15/19 15:10 Source: patient, RN notes reviewed, Vital Signs reviewed Exam Limitations: clinical condition Additional Information: h/o dementia - History of Present Illness Initial Comments: c/o left ankle pain. Brought from the [facility] after tripping & falling. She denies pain anywhere else. She says she doesn't remember any details of the fall. Severity: mild Improving Factors: nothing Worsening Factors: nothing Associated Symptoms: other - denies any Allergies/Adverse Reactions: Allergies Tramadol Allergy (Severe, Verified 04/27/18 20:06) Hives Aspirin Allergy (Verified 02/17/19 19:58) Home Medications: Ambulatory Orders ALPRAZolam [Xanax] 0.25 mg PO Q12H 04/28/18 Acetaminophen [Tylenol] 650 mg PO Q6H PRN 04/28/18 Apoaequorin [Prevagen Extra Strength] 20 mg PO BEDTIME 04/28/18 Carvedilol [Coreg] 6.25 mg PO BID 04/28/18 Ezetimibe [Zetia] 10 mg PO BEDTIME 04/28/18 Lisinopril [Zestril] 2.5 mg PO DAILY 04/28/18 Memantine HCl [Namenda] 10 mg PO BID 04/28/18 Mirabegron [Myrbetriq] 50 mg PO DAILY 04/28/18 Olopatadine HCl [Pazeo] 1 drop BOTH_EYES DAILY 04/28/18 Primidone [Mysoline] 50 mg PO BEDTIME 04/28/18 Red Yeast Rice Extract [Red Yeast Rice] 1,200 mg PO DAILY 04/28/18 Levothyroxine Sodium [Levo-T] 50 mcg PO QAM 30 Days #30 tab 04/29/18 Escitalopram Oxalate [Lexapro] 10 mg PO DAILY 10/09/18 Furosemide [Lasix] 40 mg PO DAILY #0 10/10/18 Polyethylene Glycol 3350 [Miralax] 17 gm PO .TWICE WEEKLY 30 Days #30 pckt 10/10/18 Potassium Chloride [Micro-K] 10 meq PO DAILY@0730 #0 10/10/18 Acetaminophen [Tylenol 8 Hour Arthritis] 650 mg PO BID 02/17/19 Ciprofloxacin [Cipro] 500 mg PO BID #14 tab 02/17/19 Guaifenesin [Robitussin Mucus+Chest Co] 100 mg PO Q4HR PRN 02/17/19 Loratadine [Allergy] 10 mg PO DAILY PRN 02/17/19 Review of Systems - Review of Systems Constitutional: States: no symptoms reported Respiratory: States: no symptoms reported Cardiology: States: no symptoms reported Gastrointestinal/Abdominal: States: no symptoms reported Musculoskeletal: States: see HPI Skin: States: no symptoms reported Neurological: States: no symptoms reported Past Medical History (General) - Patient Medical History Hx Seizures: No Hx Stroke: No Hx Dementia: Yes Hx Asthma: No Hx of COPD: No Hx Cardiac Disorders: Yes Hx Congestive Heart Failure: Yes Hx Pacemaker: Yes Hx Hypertension: Yes Hx Thyroid Disease: Yes Hx Diabetes: No Hx Gastroesophageal Reflux: No Hx Renal Disease: No Hx Cancer: No Hx of HIV: No Hx Hepatitis C: No Hx MRSA: No - Vaccination History Hx Tetanus, Diphtheria Vaccination: No Hx Influenza Vaccination: - unknown Hx Pneumococcal Vaccination: - unknown - Social History Hx Tobacco Use: No Hx Chewing Tobacco Use: No Hx Alcohol Use: No Hx Substance Use: No Hx Substance Use Treatment: No Hx Depression: No Hx Physical Abuse: No Hx Emotional Abuse: No Hx Suspected Abuse: No Family Medical History - Family History Mother Family History: Unknown Living Status: Father Family History: Unknown Living Status: Physical Exam - Physical Exam General Appearance: Alert, Comfortable, No apparent distress, Other - angry Eye Exam: bilateral normal Ears, Nose, Throat: hearing grossly normal Neck: non-tender, full range of motion, supple, normal inspection Respiratory: lungs clear, normal breath sounds, no respiratory distress Cardiovascular/Chest: regular rate, rhythm Back Exam: normal inspection, no vertebral tenderness Extremity: normal range of motion, swelling, other - tender left ankle 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 "Hurts all over" but denies head, back or abdominal pain. Does report neck pain to the sides of her neck. 03/15/19 17:46 Able to ambulate without pain or difficulty. - EKG/XRAY/CT XRAY: left ankle; T&L spine - ankle swelling CT Ordered: Yes - head & neck - no acute process Departure - Departure Clinical Impression: Neck pain Ankle sprain Qualifiers: Encounter type: initial encounter Involved ligament of ankle: unspecified ligament Laterality: left Qualified Code(s): S93.402A - Sprain of unspecified ligament of left ankle, initial encounter Time of Disposition: 17:48 Disposition: Discharge to Home or Self Care Departure Forms: ED Discharge - Pt. Copy, Patient Portal Self Enrollment Instructions: Ankle Sprain (DC), Generalized Neck Pain (DC) Home Medications: Ambulatory Orders ALPRAZolam [Xanax] 0.25 mg PO Q12H 04/28/18 Acetaminophen [Tylenol] 650 mg PO Q6H PRN 04/28/18 Apoaequorin [Prevagen Extra Strength] 20 mg PO BEDTIME 04/28/18 Carvedilol [Coreg] 6.25 mg PO BID 04/28/18 Ezetimibe [Zetia] 10 mg PO BEDTIME 04/28/18 Lisinopril [Zestril] 2.5 mg PO DAILY 04/28/18 Memantine HCl [Namenda] 10 mg PO BID 04/28/18 Mirabegron [Myrbetriq] 50 mg PO DAILY 04/28/18 Olopatadine HCl [Pazeo] 1 drop BOTH_EYES DAILY 04/28/18 Primidone [Mysoline] 50 mg PO BEDTIME 04/28/18 Red Yeast Rice Extract [Red Yeast Rice] 1,200 mg PO DAILY 04/28/18 Levothyroxine Sodium [Levo-T] 50 mcg PO QAM 30 Days #30 tab 04/29/18 Escitalopram Oxalate [Lexapro] 10 mg PO DAILY 10/09/18 Furosemide [Lasix] 40 mg PO DAILY #0 10/10/18 Polyethylene Glycol 3350 [Miralax] 17 gm PO .TWICE WEEKLY 30 Days #30 pckt 10/10/18 Potassium Chloride [Micro-K] 10 meq PO DAILY@0730 #0 10/10/18 Acetaminophen [Tylenol 8 Hour Arthritis] 650 mg PO BID 02/17/19 Ciprofloxacin [Cipro] 500 mg PO BID #14 tab 02/17/19 Guaifenesin [Robitussin Mucus+Chest Co] 100 mg PO Q4HR PRN 03/25/19 Loratadine [Allergy] 10 mg PO DAILY PRN 02/17/19 Additional Instructions: notify her doctor tomorrow
[2019-03-15 18:28] VITALS: BP 120/58
== END 2019-03-15 18:20 | disposition home or self-care (01) ==
LOC: ER 14:48
DX: S93.402A Sprain of unspecified ligament of left ankle, initial encounter (principal); M54.2 Cervicalgia; M47.814 Spondylosis without myelopathy or radiculopathy, thoracic region; M47.817 Spondylosis without myelopathy or radiculopathy, lumbosacral region; F03.90 Unspecified dementia, unspecified severity, without behavioral disturbance, psychotic disturbance, mood disturbance, and anxiety; I50.9 Heart failure, unspecified; I10 Essential (primary) hypertension; E07.9 Disorder of thyroid, unspecified; Z95.0 Presence of cardiac pacemaker; Z79.899 Other long term (current) drug therapy; Z88.5 Allergy status to narcotic agent; Z88.6 Allergy status to analgesic agent; W01.0XXA Fall on same level from slipping, tripping and stumbling without subsequent striking against object, initial encounter; Y92.129 Unspecified place in nursing home as the place of occurrence of the external cause

== ENCOUNTER 2019-03-16 08:19 | Emergency (ER) | payer MEDICARE ==
[2019-03-16 08:44] VITALS: TEMP 97.3
--- NOTE | 2019-03-16 10:02 | RAD ---
PROCEDURE: XR Right Elbow Complete, 3 or More Views CLINICAL INDICATION: The patient is 84 years old and is Female; pain, recurrent falls TECHNIQUE: Frontal, lateral and oblique views of the right elbow. COMPARISON: No relevant prior studies available. FINDINGS: BONES/JOINTS: No acute fracture noted. No dislocation. Joint spaces maintained. There is a Mach line on the oblique view over the supracondylar region. No elbow effusion. SOFT TISSUES: No radiopaque foreign body. No significant soft tissue swelling noted. IMPRESSION: Unremarkable right elbow x-rays without evidence of fracture or dislocation. Electronically signed by: Denzel Condon MD 03/16/2019 9:59 AM CDT
--- NOTE | 2019-03-16 10:19 | RAD ---
PROCEDURE: XR Right Shoulder, 1 View CLINICAL INDICATION: The patient is 84 years old and is Female; pain, recurrent falls TECHNIQUE: One view of the right shoulder. COMPARISON: Prior RIGHT shoulder x-ray from 05/31/2016 FINDINGS: BONES/JOINTS: No acute fracture or dislocation identified in the RIGHT shoulder. Note that evaluation is limited due to a single view. RIGHT humeral head is high riding. Chronic old midshaft RIGHT clavicular fracture with overriding fragments are again noted. Degenerative changes of the AC joint are again noted. SOFT TISSUES: No radiopaque foreign body. No significant soft tissue swelling noted. IMPRESSION: No acute fracture or dislocation identified in the RIGHT shoulder. Note that evaluation is limited due to a single view. Electronically signed by: Denzel Condon MD 03/16/2019 10:16 AM CDT
--- NOTE | 2019-03-16 10:30 | RAD ---
PROCEDURE: XR Right Knee, 1 or 2 views CLINICAL INDICATION: The patient is 84 years old and is Female; pain, recurrent falls TECHNIQUE: Frontal and/or lateral views of the right knee. COMPARISON: Prior study from 12/05/2017 FINDINGS: BONES/JOINTS: Again noted is moderate tricompartmental osteoarthritis with joint space narrowing and marginal osteophyte formation. No acute fracture or dislocation identified in the RIGHT knee. No suprapatellar knee effusion is seen. Multiple corticated suspected loose bodies are present laterally adjacent to the femoral cortex. They are stable. SOFT TISSUES: Unremarkable.No radiopaque foreign body. No significant soft tissue swelling noted. IMPRESSION: 1. Again noted is moderate tricompartmental osteoarthritis with joint space narrowing and marginal osteophyte formation. Loose body suspected, but unchanged. 2. No acute fracture or dislocation identified in the RIGHT knee. Electronically signed by: Denzel Condon MD 03/16/2019 10:27 AM CDT
[2019-03-16] MEDS ORDERED: NITROFURANTOIN MONOHYDRATE MAC 100 MG CAP PO ONE (13:11)
--- NOTE | 2019-03-16 13:16 | ED.PDOC ---
History of Present Illness - General Chief Complaint: Trauma Stated Complaint: Pt states she fell out of bed Time Seen by Provider: 03/16/19 08:22 Source: patient, [facility] records - History of Present Illness Initial Comments: the patient is a 84-year-old female presenting after the second fall in 2 days. The patient actually fell while getting out of bed. She was sore from her fall yesterday and essentially lost her balance while getting out of bed today and fell. She has some pain in the right elbow shoulder and knee. The worst seems to be in the right elbow that she actually moves pretty well. No gross deformity. No crepitus. She is apparently neurovascularly at her baseline. She has not been using her walker which she is supposed to. She does have some dementia so she might not have remembered it.she reports that she did not hit her head today. She did have a head CT yesterday that was negative. Timing/Duration: 1/2 hour Severity: moderate Improving Factors: nothing Worsening Factors: movement Associated Symptoms: denies symptoms Allergies/Adverse Reactions: Allergies Tramadol Allergy (Severe, Verified 03/16/19 09:46) Hives Aspirin Allergy (Verified 03/16/19 09:46) Home Medications: Ambulatory Orders ALPRAZolam [Xanax] 0.25 mg PO TID 04/28/18 Acetaminophen [Tylenol] 650 mg PO Q6H PRN 04/28/18 Carvedilol [Coreg] 6.25 mg PO BID 04/28/18 Ezetimibe [Zetia] 10 mg PO BEDTIME 04/28/18 Lisinopril [Zestril] 20 mg PO DAILY 04/28/18 Memantine HCl [Namenda] 10 mg PO BID 04/28/18 Mirabegron [Myrbetriq] 50 mg PO DAILY 04/28/18 Olopatadine HCl [Pazeo] 1 drop BOTH_EYES DAILY 04/28/18 Primidone [Mysoline] 50 mg PO BEDTIME 04/28/18 Red Yeast Rice Extract [Red Yeast Rice] 1,200 mg PO DAILY 04/28/18 Levothyroxine Sodium [Levo-T] 50 mcg PO QAM 30 Days #30 tab 04/29/18 Escitalopram Oxalate [Lexapro] 10 mg PO DAILY 10/09/18 Furosemide [Lasix] 40 mg PO DAILY #0 10/10/18 Polyethylene Glycol 3350 [Miralax] 17 gm PO .TWICE WEEKLY 30 Days #30 pckt 10/10/18 Potassium Chloride [Micro-K] 10 meq PO DAILY@0730 #0 10/10/18 Acetaminophen [Tylenol 8 Hour Arthritis] 650 mg PO BID 02/17/19 Loratadine [Allergy] 10 mg PO DAILY PRN 02/17/19 Apoaequorin [Prevagen Extra Strength] 20 mg PO BEDTIME 03/16/19 Guaifenesin [Robitussin Mucus+Chest Co] 10 ml PO PRN 03/16/19 Nitrofurantoin Monohydrate Mac [Macrobid] 100 mg PO DAILY #7 capsule 03/16/19 Review of Systems - Review of Systems Constitutional: States: no symptoms reported EENTM: States: no symptoms reported Respiratory: States: no symptoms reported Cardiology: States: no symptoms reported Gastrointestinal/Abdominal: States: no symptoms reported Genitourinary: States: no symptoms reported Musculoskeletal: States: see HPI Skin: States: no symptoms reported Neurological: States: see HPI Endocrine: States: no symptoms reported All other Systems: No Change from Baseline Past Medical History (General) - Patient Medical History Hx Seizures: No Hx Stroke: No Hx Dementia: Yes Hx Asthma: No Hx of COPD: No Hx Cardiac Disorders: Yes Hx Congestive Heart Failure: Yes Hx Pacemaker: Yes Hx Hypertension: Yes Hx Thyroid Disease: Yes Hx Diabetes: No Hx Gastroesophageal Reflux: No Hx Renal Disease: No Hx Cancer: No Hx of HIV: No Hx Hepatitis C: No Hx MRSA: No - Vaccination History Hx Tetanus, Diphtheria Vaccination: No Hx Influenza Vaccination: - unknown Hx Pneumococcal Vaccination: - unknown - Social History Hx Tobacco Use: No Hx Chewing Tobacco Use: No Hx Alcohol Use: No Hx Substance Use: No Hx Substance Use Treatment: No Hx Depression: No Hx Physical Abuse: No Hx Emotional Abuse: No Hx Suspected Abuse: No - Activities of Daily Living Intermediate/Assisted Living (if applicable):: [place] - Female History Patient is a Female of Child Bearing Age (10 -59 yrs old): No Patient : No Family Medical History - Family History Mother Family History: Unknown Living Status: Father Family History: Unknown Living Status: Physical Exam - Physical Exam General Appearance: Alert, No apparent distress Eye Exam: bilateral normal Ears, Nose, Throat: hearing grossly normal, normal ENT inspection, normal pharynx Neck: full range of motion, supple Respiratory: lungs clear, normal breath sounds, no respiratory distress, no accessory muscle use Cardiovascular/Chest: normal peripheral pulses, regular rate, rhythm - borderline bradycardia, no edema Peripheral Pulses: radial,right: 2+, radial,left: 2+, dorsalis pedis,right: 2+, dorsalis pedis,left: 2+ Gastrointestinal/Abdominal: non tender, soft Rectal Exam: deferred Back Exam: no CVA tenderness, no vertebral tenderness Extremity: normal range of motion, no pedal edema, no calf tenderness, normal capillary refill, other - tenderness to palpation over the right elbow primarily but also lesser over the right knee and right shoulder. Passive and active range of motion due to her to be preserved without significant discomfort. 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 She does realize she is at the hospital and that she fell this morning. Skin Exam: normal color Comments: Vital Signs - 24 hr 03/16/19 03/16/19 03/16/19 08:32 09:11 09:12 Temperature 97.3 F L Pulse Rate [R 54 L 60 58 L finger] Respiratory 20 Rate Blood Pressure 106/86 155/74 109/90 [L arm] O2 Sat by Pulse 99 Oximetry 03/16/19 03/16/19 03/16/19 09:13 09:31 10:37 Temperature Pulse Rate [R 60 73 60 finger] Respiratory 18 18 Rate Blood Pressure 140/67 139/83 135/74 [L arm] O2 Sat by Pulse 99 95 Oximetry 03/16/19 11:56 Temperature Pulse Rate [R 51 L finger] Respiratory 20 Rate Blood Pressure 147/69 [L arm] O2 Sat by Pulse 97 Oximetry Progress - Progress Progress: 03/16/19 13:17 the patient is an 84-year-old female presented to the emergency room with a recurrent fall. X-rays of the right shoulder, elbow and knee show no evidence of any acute fracture or dislocation. She does need to use her walker when ambulating. She may benefit from physical therapy for strength training to prevent future falls. She does have a fairly labile blood pressure so episodic hypotension may also be contributing. This needs to be followed. She does have a small urinary tract infection, that if it were not for the recurrent falls I would not be treating. She will be placed on Macrobid for 7 days and 100 mg daily. Keep well hydrated. Follow up with primary care doctor next week. ER warnings were given. - Results/Orders Results/Orders: x-ray of the right shoulder, right elbow and right knee show no evidence of any acute fracture or dislocation. Multiple chronic changes are noted. Laboratory Tests 03/16/19 03/16/19 03/16/19 09:02 09:02 12:32 WBC 5.6 RBC 3.94 L Hgb 12.0 Hct 35.9 L MCV 91.1 MCH 30.5 MCHC 33.4 RDW 13.5 Plt Count 234 MPV 8.1 Absolute Neuts (auto) 3.00 Absolute Lymphs (auto) 1.70 Absolute Monos (auto) 0.70 Absolute Eos (auto) 0.20 Absolute Basos (auto) 0.10 Neutrophils % 53.8 Lymphocytes % 29.9 Monocytes % 12.3 H Eosinophils % 3.0 Basophils % 1.0 Sodium 140 Potassium 3.5 L Chloride 105 Carbon Dioxide 22 Anion Gap 16.5 BUN 15 Creatinine 1.08 BUN/Creatinine Ratio 13.9 Random Glucose 82 Serum Osmolality 279.3 Calcium 9.0 Magnesium 1.9 Total Bilirubin 0.7 AST 30 ALT 19 Alkaline Phosphatase 79 Serum Total Protein 7.0 Albumin 3.8 Globulin 3.2 Albumin/Globulin Ratio 1.2 Urine Color Yellow Urine Appearance Clear Urine pH 7.0 Ur Specific [place] 1.020 Urine Protein Trace Urine Glucose (UA) Negative Urine Ketones Negative Urine Blood Negative Urine Nitrite Positive H Urine Bilirubin Negative Urine Urobilinogen 0.2 Ur Leukocyte Esterase Trace H Urine RBC 0 Urine WBC 5-10 H Ur Epithelial Cells 5-10 Urine Bacteria 3+ H Departure - Departure Clinical Impression: Cystitis Fall at [facility] Qualifiers: Encounter type: initial encounter Qualified Code(s): W19.XXXA - Unspecified fall, initial encounter; Y92.129 - Unspecified place in [facility] as the place of occurrence of the external cause Strain of right elbow Qualifiers: Encounter type: initial encounter Qualified Code(s): S46.911A - Strain of unspecified muscle, fascia and tendon at shoulder and upper arm level, right arm, initial encounter Strain of right knee Qualifiers: Encounter type: initial encounter Qualified Code(s): S86.911A - Strain of unspecified muscle(s) and tendon(s) at lower leg level, right leg, initial encounter Disposition: Discharge to Home or Self Care Condition: Fair Departure Forms: ED Discharge - Pt. Copy, Patient Portal Self Enrollment Diet: regular diet Activity: increase activity as tolerated Prescriptions: Nitrofurantoin Monohydrate Mac [Macrobid] 100 mg PO DAILY #7 capsule Home Medications: Ambulatory Orders ALPRAZolam [Xanax] 0.25 mg PO TID 04/28/18 Acetaminophen [Tylenol] 650 mg PO Q6H PRN 04/28/18 Carvedilol [Coreg] 6.25 mg PO BID 04/28/18 Ezetimibe [Zetia] 10 mg PO BEDTIME 04/28/18 Lisinopril [Zestril] 20 mg PO DAILY 04/28/18 Memantine HCl [Namenda] 10 mg PO BID 04/28/18 Mirabegron [Myrbetriq] 50 mg PO DAILY 04/28/18 Olopatadine HCl [Pazeo] 1 drop BOTH_EYES DAILY 04/28/18 Primidone [Mysoline] 50 mg PO BEDTIME 04/28/18 Red Yeast Rice Extract [Red Yeast Rice] 1,200 mg PO DAILY 04/28/18 Levothyroxine Sodium [Levo-T] 50 mcg PO QAM 30 Days #30 tab 04/29/18 Escitalopram Oxalate [Lexapro] 10 mg PO DAILY 10/09/18 Furosemide [Lasix] 40 mg PO DAILY #0 10/10/18 Polyethylene Glycol 3350 [Miralax] 17 gm PO .TWICE WEEKLY 30 Days #30 pckt 10/10/18 Potassium Chloride [Micro-K] 10 meq PO DAILY@0730 #0 10/10/18 Acetaminophen [Tylenol 8 Hour Arthritis] 650 mg PO BID 02/17/19 Loratadine [Allergy] 10 mg PO DAILY PRN 02/17/19 Apoaequorin [Prevagen Extra Strength] 20 mg PO BEDTIME 03/16/19 Guaifenesin [Robitussin Mucus+Chest Co] 10 ml PO PRN 03/16/19 Nitrofurantoin Monohydrate Mac [Macrobid] 100 mg PO DAILY #7 capsule 03/16/19 Additional Instructions: the patient is an 84-year-old female presented to the emergency room with a recurrent fall. X-rays of the right shoulder, elbow and knee show no evidence of any acute fracture or dislocation. She does need to use her walker when ambulating. She may benefit from physical therapy for strength training to prevent future falls. She does have a fairly labile blood pressure so episodic hypotension may also be contributing. This needs to be followed. She does have a small urinary tract infection, that if it were not for the recurrent falls I would not be treating. She will be placed on Macrobid for 7 days and 100 mg daily. Keep well hydrated. Follow up with primary care doctor next week. ER warnings were given.
[2019-03-16 14:01] VITALS: BP 113/91; O2SAT 96
== END 2019-03-16 14:00 | disposition home or self-care (01) ==
LOC: ER 08:19
DX: S46.911A Strain of unspecified muscle, fascia and tendon at shoulder and upper arm level, right arm, initial encounter (principal); S86.911A Strain of unspecified muscle(s) and tendon(s) at lower leg level, right leg, initial encounter; N30.90 Cystitis, unspecified without hematuria; F03.90 Unspecified dementia, unspecified severity, without behavioral disturbance, psychotic disturbance, mood disturbance, and anxiety; I50.9 Heart failure, unspecified; I10 Essential (primary) hypertension; E07.9 Disorder of thyroid, unspecified; Z95.0 Presence of cardiac pacemaker; Z79.899 Other long term (current) drug therapy; Z88.6 Allergy status to analgesic agent; W06.XXXA Fall from bed, initial encounter; Y92.129 Unspecified place in nursing home as the place of occurrence of the external cause

== ENCOUNTER 2019-03-28 21:01 | Emergency (ER) | payer MEDICARE ==
--- NOTE | 2019-03-28 21:24 | ED.PDOC ---
History of Present Illness - General Chief Complaint: Trauma Stated Complaint: fall with right knee, neck, left arm pain Time Seen by Provider: 03/28/19 21:22 Source: patient, EMS Exam Limitations: no limitations - History of Present Illness Initial Comments: patient is a snf patient and was getting out of her recliner which is at lift-assisted recliner and slid to the floor falling on her side and hitting the back of her head. She denies any loss of consciousness, vision change, or nausea. However, she does have advanced dementia and sometimes gets easily confused. Patient does state that her left arm and her knee hurts a little bit worse than normal especially when palpated as does the back of her head and neck. Occurred: just prior to arrival Severity: moderate Pain Location: neck, upper extremity, lower extremity Method of Injury: fall Improving Factors: nothing Worsening Factors: movement Loss of Consciousness: no loss of consciousness Associated Symptoms (Fall): denies symptoms Allergies/Adverse Reactions: Allergies Tramadol Allergy (Severe, Verified 03/16/19 09:46) Hives Aspirin Allergy (Verified 03/16/19 09:46) Home Medications: Ambulatory Orders ALPRAZolam [Xanax] 0.25 mg PO TID 04/28/18 Acetaminophen [Tylenol] 650 mg PO Q6H PRN 04/28/18 Carvedilol [Coreg] 6.25 mg PO BID 04/28/18 Ezetimibe [Zetia] 10 mg PO BEDTIME 04/28/18 Lisinopril [Zestril] 20 mg PO DAILY 04/28/18 Memantine HCl [Namenda] 10 mg PO BID 04/28/18 Mirabegron [Myrbetriq] 50 mg PO DAILY 04/28/18 Olopatadine HCl [Pazeo] 1 drop BOTH_EYES DAILY 04/28/18 Primidone [Mysoline] 50 mg PO BEDTIME 04/28/18 Red Yeast Rice Extract [Red Yeast Rice] 1,200 mg PO DAILY 04/28/18 Levothyroxine Sodium [Levo-T] 50 mcg PO QAM 30 Days #30 tab 04/29/18 Escitalopram Oxalate [Lexapro] 10 mg PO DAILY 10/09/18 Furosemide [Lasix] 40 mg PO DAILY #0 10/10/18 Polyethylene Glycol 3350 [Miralax] 17 gm PO .TWICE WEEKLY 30 Days #30 pckt 10/10/18 Potassium Chloride [Micro-K] 10 meq PO DAILY@0730 #0 10/10/18 Acetaminophen [Tylenol 8 Hour Arthritis] 650 mg PO BID 02/17/19 Loratadine [Allergy] 10 mg PO DAILY PRN 02/17/19 Apoaequorin [Prevagen Extra Strength] 20 mg PO BEDTIME 03/16/19 Guaifenesin [Robitussin Mucus+Chest Co] 10 ml PO PRN 03/16/19 Nitrofurantoin Monohydrate Mac [Macrobid] 100 mg PO DAILY #7 capsule 03/16/19 Review of Systems - Review of Systems Constitutional: States: no symptoms reported. Denies: chills, fever EENTM: States: no symptoms reported Respiratory: States: no symptoms reported. Denies: short of breath, wheezing Cardiology: States: no symptoms reported. Denies: chest pain, palpitations Gastrointestinal/Abdominal: States: no symptoms reported. Denies: abdominal pain, constipation, nausea, vomiting Genitourinary: States: no symptoms reported Musculoskeletal: States: see HPI Neurological: States: no symptoms reported Past Medical History (General) - Patient Medical History Hx Seizures: No Hx Stroke: No Hx Dementia: Yes Hx Asthma: No Hx of COPD: No Hx Cardiac Disorders: Yes Hx Congestive Heart Failure: Yes Hx Pacemaker: Yes Hx Hypertension: Yes Hx Thyroid Disease: Yes Hx Diabetes: No Hx Gastroesophageal Reflux: No Hx Renal Disease: No Hx Cancer: No Hx of HIV: No Hx Hepatitis C: No Hx MRSA: No - Vaccination History Hx Tetanus, Diphtheria Vaccination: No Hx Influenza Vaccination: - unknown Hx Pneumococcal Vaccination: - unknown - Social History Hx Tobacco Use: No Hx Chewing Tobacco Use: No Hx Alcohol Use: No Hx Substance Use: No Hx Substance Use Treatment: No Hx Depression: No Hx Physical Abuse: No Hx Emotional Abuse: No Hx Suspected Abuse: No - Female History Patient : No Family Medical History - Family History Mother Family History: Unknown Living Status: Father Family History: Unknown Living Status: Progress - Progress Progress: 03/28/19 22:28 patient with no pain with removal of c-collar and FROM is seen will discharge back to snf - Results/Orders Results/Orders: Patient Name: TRISTIAN HERNANDES Gender: Female Date of : 1935 Referring Physician: SUE STERLING Organization: [facility] Accession Number: [id number] Requested Date: March 28, 2019 21:09 Report Status: Final Requested Procedure: 1 Procedure Description: Knee,Right 2 or More Views Modality: CR Findings Reporting MD: Natalie Campo MD: Not available Dictation Time: Custom Framing Specialist: Not available Back Hanger Date: EXAM: XR Right Knee, 1 or 2 views CLINICAL HISTORY: 84 years old and is Female; fall TECHNIQUE: Frontal and/or lateral views of the right knee. COMPARISON: 03/16/2019 FINDINGS: Limitations: None. Bones/joints: Multiple loose bodies unchanged. Stable moderate to severe narrowing of the patellofemoral joint. Stable mild medial joint line spurring. No acute fracture. No dislocation. Soft tissues: Unremarkable. IMPRESSION: No acute findings. Patient Name: TRISTIAN HERNANDES Gender: Female Date of : 1935 Referring Physician: SUE STERLING Organization: [facility] Accession Number: [id number] Requested Date: March 28, 2019 21:17 Report Status: Final Requested Procedure: 1 Procedure Description: Cervical Spine Modality: CT Findings Reporting MD: Antony Loredo Fellow MD: Not available Dictation Time: Custom Framing Specialist: Not available Back Hanger Date: PROCEDURE: Cervical Spine CLINICAL HISTORY: 84 years Female fall COMPARISON: None. TECHNIQUE: Contiguous axial images obtained through the cervical spine without IV contrast. Coronal and sagittal reformatted images obtained. This exam was performed according to our department optimization program which includes automated exposure control, adjustment of the mA and/or kv according to patient size and/or use of iterative reconstruction technique. FINDINGS: Disc space narrowing throughout the cervical spine. Mild listhesis at several levels which is likely degenerative. Degenerative changes in the uncovertebral joints and facets. No significant spinal or foraminal stenosis is identified. No acute cervical spinal fracture is identified. 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 Pacemaker leads are partially visualized. Atherosclerotic calcifications in the carotid bifurcations. IMPRESSION: No acute cervical spinal fracture is ident Patient Name: TRISTIAN HERNANDES Gender: Female Date of : 1935 Referring Physician: SUE STERLING Organization: [facility] Accession Number: [id number] Requested Date: March 28, 2019 21:17 Report Status: Final Requested Procedure: 1 Procedure Description: Head Modality: CT Findings Reporting MD: Hussein Rogers Fellow MD: Not available Dictation Time: Custom Framing Specialist: Not available Back Hanger Date: EXAM DESCRIPTION: Head CLINICAL HISTORY: fall COMPARISON: March 15, 2019 TECHNIQUE: Contiguous axial images of the brain were obtained without the administration of intravenous contrast.This exam was performed according to our departmental dose-optimization program, which includes automated exposure control, adjustment of the mA and/or kV according to patient size and/or use of iterative reconstruction technique. FINDINGS: There is no acute intracranial hemorrhage or mass effect. Areas of low attenuation in the periventricular and subcortical white matter are nonspecific but suggestive of small vessel disease. There is generalized atrophy. There are old lacunar infarcts within the basal ganglia. There is atherosclerosis. Ventricular system is within normal limits. There is adequate slade-white matter differentiation. There is no skull fracture. The visualized paranasal sinuses and mastoid air cells are within normal limits. IMPRESSION: No acute intracranial abnormalities. Departure - Departure Clinical Impression: Fall at snf Qualifiers: Encounter type: initial encounter Qualified Code(s): W19.XXXA - Unspecified fall, initial encounter; Y92.129 - Unspecified place in snf as the place of occurrence of the external cause Disposition: Discharge to SNF Condition: Good Departure Forms: ED Discharge - Pt. Copy, Patient Portal Self Enrollment Instructions: DI for Trauma Home Medications: Ambulatory Orders ALPRAZolam [Xanax] 0.25 mg PO TID 04/28/18 Acetaminophen [Tylenol] 650 mg PO Q6H PRN 04/28/18 Carvedilol [Coreg] 6.25 mg PO BID 04/28/18 Ezetimibe [Zetia] 10 mg PO BEDTIME 04/28/18 Lisinopril [Zestril] 20 mg PO DAILY 04/28/18 Memantine HCl [Namenda] 10 mg PO BID 04/28/18 Mirabegron [Myrbetriq] 50 mg PO DAILY 04/28/18 Olopatadine HCl [Pazeo] 1 drop BOTH_EYES DAILY 04/28/18 Primidone [Mysoline] 50 mg PO BEDTIME 04/28/18 Red Yeast Rice Extract [Red Yeast Rice] 1,200 mg PO DAILY 04/28/18 Levothyroxine Sodium [Levo-T] 50 mcg PO QAM 30 Days #30 tab 04/29/18 Escitalopram Oxalate [Lexapro] 10 mg PO DAILY 10/09/18 Furosemide [Lasix] 40 mg PO DAILY #0 10/10/18 Polyethylene Glycol 3350 [Miralax] 17 gm PO .TWICE WEEKLY 30 Days #30 pckt 10/10/18 Potassium Chloride [Micro-K] 10 meq PO DAILY@0730 #0 10/10/18 Acetaminophen [Tylenol 8 Hour Arthritis] 650 mg PO BID 02/17/19 Loratadine [Allergy] 10 mg PO DAILY PRN 02/17/19 Apoaequorin [Prevagen Extra Strength] 20 mg PO BEDTIME 03/16/19 Guaifenesin [Robitussin Mucus+Chest Co] 10 ml PO PRN 03/16/19 Nitrofurantoin Monohydrate Mac [Macrobid] 100 mg PO DAILY #7 capsule 03/16/19
--- NOTE | 2019-03-28 22:13 | RAD ---
EXAM: XR Left Humerus, 2 or More Views CLINICAL HISTORY: 84 years old and is Female; fall TECHNIQUE: Frontal and lateral views of the left humerus. COMPARISON: No relevant prior studies available. FINDINGS: Limitations: None. Bones/joints: Unremarkable. No acute fracture. No dislocation. Soft tissues: Unremarkable. IMPRESSION: No acute findings. Electronically signed by: Natalie Campo MD 03/28/2019 10:11 PM CDT
--- NOTE | 2019-03-28 22:14 | RAD ---
EXAM: XR Right Knee, 1 or 2 views CLINICAL HISTORY: 84 years old and is Female; fall TECHNIQUE: Frontal and/or lateral views of the right knee. COMPARISON: 03/16/2019 FINDINGS: Limitations: None. Bones/joints: Multiple loose bodies unchanged. Stable moderate to severe narrowing of the patellofemoral joint. Stable mild medial joint line spurring. No acute fracture. No dislocation. Soft tissues: Unremarkable. IMPRESSION: No acute findings. Electronically signed by: Natalie Campo MD 03/28/2019 10:12 PM CDT
--- NOTE | 2019-03-28 22:19 | CT ---
EXAM DESCRIPTION: Head CLINICAL HISTORY: fall COMPARISON: March 15, 2019 TECHNIQUE: Contiguous axial images of the brain were obtained without the administration of intravenous contrast.This exam was performed according to our departmental dose-optimization program, which includes automated exposure control, adjustment of the mA and/or kV according to patient size and/or use of iterative reconstruction technique. FINDINGS: There is no acute intracranial hemorrhage or mass effect. Areas of low attenuation in the periventricular and subcortical white matter are nonspecific but suggestive of small vessel disease. There is generalized atrophy. There are old lacunar infarcts within the basal ganglia. There is atherosclerosis. Ventricular system is within normal limits. There is adequate slade-white matter differentiation. There is no skull fracture. The visualized paranasal sinuses and mastoid air cells are within normal limits. IMPRESSION: No acute intracranial abnormalities. Electronically signed by: Hussein Rogers MD 03/28/2019 10:17 PM CDT
--- NOTE | 2019-03-28 22:20 | CT ---
PROCEDURE: Cervical Spine CLINICAL HISTORY: 84 years Female fall COMPARISON: None. TECHNIQUE: Contiguous axial images obtained through the cervical spine without IV contrast. Coronal and sagittal reformatted images obtained. This exam was performed according to our department optimization program which includes automated exposure control, adjustment of the mA and/or kv according to patient size and/or use of iterative reconstruction technique. FINDINGS: Disc space narrowing throughout the cervical spine. Mild listhesis at several levels which is likely degenerative. Degenerative changes in the uncovertebral joints and facets. No significant spinal or foraminal stenosis is identified. No acute cervical spinal fracture is identified. 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 Pacemaker leads are partially visualized. Atherosclerotic calcifications in the carotid bifurcations. IMPRESSION: No acute cervical spinal fracture is identified. Electronically signed by: Antony Loredo MD 03/28/2019 10:18 PM CDT
[2019-03-28 23:04] VITALS: BP 145/76
[2019-03-28 23:19] VITALS: TEMP 97.9; O2SAT 96
== END 2019-03-28 23:15 ==
LOC: ER 21:01
DX: R51 Headache (principal); M54.2 Cervicalgia; M79.602 Pain in left arm; M25.562 Pain in left knee; F03.90 Unspecified dementia, unspecified severity, without behavioral disturbance, psychotic disturbance, mood disturbance, and anxiety; I51.9 Heart disease, unspecified; I50.9 Heart failure, unspecified; I10 Essential (primary) hypertension; E07.9 Disorder of thyroid, unspecified; W07.XXXA Fall from chair, initial encounter; Y92.129 Unspecified place in nursing home as the place of occurrence of the external cause; Z95.0 Presence of cardiac pacemaker; Z79.899 Other long term (current) drug therapy; Z88.6 Allergy status to analgesic agent; Z88.5 Allergy status to narcotic agent

== ENCOUNTER 2019-03-29 09:02 | Emergency (ER) | payer MEDICARE ==
--- NOTE | 2019-03-29 09:47 | ED.PDOC ---
History of Present Illness - General Chief Complaint: Trauma Stated Complaint: hurts all over,slid out of recliner Time Seen by Provider: 03/29/19 09:41 Source: patient Exam Limitations: other - poor historian has dementia - History of Present Illness Initial Comments: Juanita Colorado 84 y/o female brought by EMS stating hurting all over after a fall last night at the [facility].She was initially seen after incident here at [facility] and CT scan studies done on her head,neck-did not show acute abnormalities and X-ray knees no acute findings was sent back to [facility]. Timing/Duration: 24 hours Severity: moderate Improving Factors: nothing Allergies/Adverse Reactions: Allergies Tramadol Allergy (Severe, Verified 03/16/19 09:46) Hives Aspirin Allergy (Verified 03/16/19 09:46) Home Medications: Ambulatory Orders ALPRAZolam [Xanax] 0.25 mg PO TID 04/28/18 Carvedilol [Coreg] 6.25 mg PO BID 04/28/18 Ezetimibe [Zetia] 10 mg PO BEDTIME 04/28/18 Lisinopril [Zestril] 20 mg PO DAILY 04/28/18 Memantine HCl [Namenda] 10 mg PO BID 04/28/18 Mirabegron [Myrbetriq] 50 mg PO DAILY 04/28/18 Olopatadine HCl [Pazeo] 1 drop BOTH_EYES DAILY 04/28/18 Primidone [Mysoline] 50 mg PO BEDTIME 04/28/18 Red Yeast Rice Extract [Red Yeast Rice] 1,200 mg PO DAILY 04/28/18 Levothyroxine Sodium [Levo-T] 50 mcg PO QAM 30 Days #30 tab 04/29/18 Escitalopram Oxalate [Lexapro] 10 mg PO DAILY 10/09/18 Furosemide [Lasix] 40 mg PO DAILY #0 10/10/18 Polyethylene Glycol 3350 [Miralax] 17 gm PO .TWICE WEEKLY 30 Days #30 pckt 10/10/18 Potassium Chloride [Micro-K] 10 meq PO DAILY@0730 #0 10/10/18 Acetaminophen [Tylenol 8 Hour Arthritis] 650 mg PO BID 02/17/19 Apoaequorin [Prevagen Extra Strength] 20 mg PO BEDTIME 03/16/19 Acetaminophen W/ Codeine [Tylenol W/ CODEINE #3] 1 ea PO TID PRN #14 03/29/19 Review of Systems - Review of Systems Constitutional: States: no symptoms reported EENTM: States: no symptoms reported Respiratory: States: no symptoms reported Cardiology: States: no symptoms reported Gastrointestinal/Abdominal: States: no symptoms reported Genitourinary: States: no symptoms reported Musculoskeletal: States: back pain, muscle pain, neck pain Skin: States: no symptoms reported Neurological: States: no symptoms reported Endocrine: States: no symptoms reported Hematologic/Lymphatic: States: no symptoms reported Past Medical History (General) - Patient Medical History Hx Seizures: No Hx Stroke: No Hx Dementia: Yes Hx Asthma: No Hx of COPD: No Hx Cardiac Disorders: Yes Hx Congestive Heart Failure: Yes Hx Pacemaker: Yes Hx Hypertension: Yes Hx Thyroid Disease: Yes Hx Diabetes: No Hx Gastroesophageal Reflux: No Hx Renal Disease: No Hx Cancer: No Hx of HIV: No Hx Hepatitis C: No Hx MRSA: No Surgical History: other - hip - Vaccination History Hx Tetanus, Diphtheria Vaccination: No Hx Influenza Vaccination: - unknown Hx Pneumococcal Vaccination: - unknown - Social History Hx Tobacco Use: No Hx Chewing Tobacco Use: No Hx Alcohol Use: No Hx Substance Use: No Hx Substance Use Treatment: No Hx Depression: No Hx Physical Abuse: No Hx Emotional Abuse: No Hx Suspected Abuse: No - Activities of Daily Living Jail/Assisted Living (if applicable):: [place] - Female History Patient : No Family Medical History - Family History Mother Family History: Unknown Living Status: Father Family History: Unknown Living Status: Physical Exam - Physical Exam General Appearance: Alert, Comfortable, No apparent distress Eye Exam: bilateral normal Ears, Nose, Throat: hearing grossly normal, normal ENT inspection, normal pha rynx Neck: non-tender, full range of motion, supple, normal inspection Respiratory: chest non-tender, lungs clear, no respiratory distress Cardiovascular/Chest: normal peripheral pulses, regular rate, rhythm, no murmur Peripheral Pulses: radial,right: 2+, radial,left: 2+ Gastrointestinal/Abdominal: normal bowel sounds, non tender, soft Extremity: normal range of motion - hips, no pedal edema, no calf tenderness, pelvis stable Neurologic: alert, oriented x 3 Skin Exam: normal color, warm/dry Progress - Progress Progress: 03/29/19 09:54 Vital Signs - 8 hr 03/29/19 09:11 Temperature 98.6 F Pulse Rate [ 56 L Right Brachial] Respiratory 20 Rate Blood Pressure 142/71 [Right Arm] O2 Sat by Pulse 100 Oximetry - Results/Orders Results/Orders: Juanita Colorado 84 y/o female with history of fall yesterday at [facility] and initially evaluated here at [facility] ER after the incident with CT-head c-spine and knee showing no fractures but was brought back today with complaints of pain all aver blood work were within normal and pelvic x ray no fractures noted this were all discussed with patients son . - EKG/XRAY/CT XRAY: pelvis - no fracture noted Departure - Departure Clinical Impression: Neck pain, Generalized body aches Fall at snf Qualifiers: Encounter type: initial encounter Qualified Code(s): W19.XXXA - Unspecified fall, initial encounter; Y92.129 - Unspecified place in snf as the place of occurrence of the external cause Headache Qualifiers: Headache type: unspecified Headache chronicity pattern: unspecified pattern Intractability: not intractable Qualified Code(s): R51 - Headache Time of Disposition: 12:19 Disposition: Discharge to Asst Living Condition: Fair Departure Forms: ED Discharge - Pt. Copy, Patient Portal Self Enrollment Prescriptions: Acetaminophen W/ Codeine [Tylenol W/ CODEINE #3] 1 ea PO TID PRN #14 PRN Reason: Pain Home Medications: Ambulatory Orders ALPRAZolam [Xanax] 0.25 mg PO TID 04/28/18 Carvedilol [Coreg] 6.25 mg PO BID 04/28/18 Ezetimibe [Zetia] 10 mg PO BEDTIME 04/28/18 Lisinopril [Zestril] 20 mg PO DAILY 04/28/18 Memantine HCl [Namenda] 10 mg PO BID 04/28/18 Mirabegron [Myrbetriq] 50 mg PO DAILY 04/28/18 Olopatadine HCl [Pazeo] 1 drop BOTH_EYES DAILY 04/28/18 Primidone [Mysoline] 50 mg PO BEDTIME 04/28/18 Red Yeast Rice Extract [Red Yeast Rice] 1,200 mg PO DAILY 04/28/18 Levothyroxine Sodium [Levo-T] 50 mcg PO QAM 30 Days #30 tab 04/29/18 Escitalopram Oxalate [Lexapro] 10 mg PO DAILY 10/09/18 Furosemide [Lasix] 40 mg PO DAILY #0 10/10/18 Polyethylene Glycol 3350 [Miralax] 17 gm PO .TWICE WEEKLY 30 Days #30 pckt 10/10/18 Potassium Chloride [Micro-K] 10 meq PO DAILY@0730 #0 10/10/18 Acetaminophen [Tylenol 8 Hour Arthritis] 650 mg PO BID 02/17/19 Apoaequorin [Prevagen Extra Strength] 20 mg PO BEDTIME 03/16/19 Acetaminophen W/ Codeine [Tylenol W/ CODEINE #3] 1 ea PO TID PRN #14 03/29/19 Additional Instructions: Return to Emergency room as needed;Continue with all home medication;Follow up with primary Md 03 Apr 2019 for recheck as needed
[2019-03-29] MEDS ORDERED: HYDROcodone 7.5MG/APAP 325MG 1 EA TAB PO ONE (09:53)
[2019-03-29] MEDS ORDERED: SODIUM CHLORIDE 0.9% 500ML 500 ML IVS ONE (09:53)
--- NOTE | 2019-03-29 11:06 | RAD ---
EXAM: XR Pelvis, 1 or 2 Views CLINICAL HISTORY: 84 years old and is Female; fall/pain TECHNIQUE: Frontal view of the pelvis. COMPARISON: No relevant prior studies available. FINDINGS: Limitations: None. Bones/joints: Mild symmetrical narrowing of the acetabular joints. No acute fracture. No dislocation. Soft tissues: Unremarkable. IMPRESSION: No acute findings. Electronically signed by: Natalie Campo MD 03/29/2019 11:04 AM CDT
[2019-03-29] MEDS ORDERED: ACETAMINOPHEN 500 MG TAB PO ONE (12:24)
[2019-03-29 12:26] VITALS: BP 121/98; TEMP 98.3
[2019-03-29 12:50] VITALS: O2SAT 97
== END 2019-03-29 12:50 ==
LOC: ER 09:02
DX: R51 Headache (principal); M54.2 Cervicalgia; R52 Pain, unspecified; F03.90 Unspecified dementia, unspecified severity, without behavioral disturbance, psychotic disturbance, mood disturbance, and anxiety; I51.9 Heart disease, unspecified; I50.9 Heart failure, unspecified; I10 Essential (primary) hypertension; E07.9 Disorder of thyroid, unspecified; Z95.0 Presence of cardiac pacemaker; Z79.899 Other long term (current) drug therapy; Z88.5 Allergy status to narcotic agent; Z88.6 Allergy status to analgesic agent
CPT/HCPCS: 72170; 80048; 80076; 82550; 82553; 84484; 85025; 85610; 85730; J7040

== ENCOUNTER → 2019-04-02 | Outpatient (CLI) | payer MEDICARE | LOC: YCHH 10:36 | PROVIDERS: ATTEND Family Medicine | DX: D64.9 Anemia, unspecified (principal); N18.9 Chronic kidney disease, unspecified; E78.5 Hyperlipidemia, unspecified ==

== ENCOUNTER → 2019-04-08 | Outpatient (CLI) | payer MEDICARE | LOC: YCHH 14:35 | PROVIDERS: ATTEND Family Medicine | DX: D50.8 Other iron deficiency anemias (principal); D64.9 Anemia, unspecified ==

== ENCOUNTER → 2020-06-02 | Outpatient (CLI) | payer MEDICARE | LOC: SOLHO 15:56 | PROVIDERS: ATTEND Family Medicine | DX: R82.90 Unspecified abnormal findings in urine (principal) ==